=== PATIENT | female | born 1940 | race Caucasian/White ===

== ENCOUNTER 2018-08-25 23:34 | Emergency (ER) | payer OTHER ==
--- NOTE | 2018-08-26 01:42 | ER ---
Nurse's Notes [facility] Name: Vanessa Duran Age: 78 yrs Sex: Female : 1940 Arrival Date: 08/25/2018 Time: 23:38 Bed 15 Private MD: Diagnosis: Acute bronchitis;Fever presenting with conditions classified elsewhere Presentation: 08/25 23:45 Presenting complaint: EMS states: complaining of fever 100.4F, weakness and slurred rr5 speech according to the insurance counsel around 2100H tonight. she is ambulatory, when we came negative for facial asymmetry, negative for arm drift and when no slurring of speech. 23:45 Transition of care: patient was not received from another setting of care. Onset of rr5 symptoms was August 25, 2018. Risk Assessment: Do you want to hurt yourself or someone else? Patient reports no desire to harm self or others. Initial Sepsis Screen: Does the patient meet any 2 criteria? No. Patient's initial sepsis screen is negative. Does the patient have a suspected source of infection? No. Patient's initial sepsis screen is negative. Care prior to arrival: Medication(s) given: Tylenol, 1 grm zofran. 23:45 Method Of Arrival: EMS: [facility] rr5 23:45 Acuity: BEATRIZ 3 rr5 23:45 Note CBG 101mg/dl by EMS. rr5 Historical: - Allergies: 23:50 juice and topical; rr5 23:50 Codeine; rr5 23:50 Ultram; rr5 23:50 Floxin; rr5 23:50 avalox; rr5 23:50 Keflex; rr5 23:50 Cleocin Hcl; rr5 23:50 sulfamethoxazole-trimethoprim; rr5 - Home Meds: 23:50 Synthroid Oral [Active]; Protonix Oral [Active]; Wellbutrin Oral [Active]; Coreg Oral rr5 [Active]; Ativan Oral [Active]; tranzondone [Active]; Hydrochlorothiazide Oral [Active]; - PMHx: 23:50 non-hodgkins lymphoma; Hypertension; rr5 - PSHx: 23:50 nose surgery; Tonsillectomy; Appendectomy; ; biopsy right breast; tubes ties; rr5 Hysterectomy; parotid gland; - Immunization history:: Adult Immunizations not up to date, Flu vaccine is not up to date. - Social history:: Smoking status: Patient/guardian denies using tobacco, Patient/guardian denies using alcohol, street drugs. - Ebola Screening: : Patient negative for fever greater than or equal to 101.5 degrees Fahrenheit, and additional compatible Ebola Virus Disease symptoms Patient denies exposure to infectious person Patient denies travel to an Ebola-affected area in the 21 days before illness onset. Screenin:50 Abuse screen: Denies threats or abuse. Nutritional screening: No deficits noted. jb4 23:50 Tuberculosis screening: No symptoms or risk factors identified. Fall Risk IV access (20 jb4 points). Gait- Normal/Bed Rest/Wheelchair (0 pts) Total [place] Fall Scale indicates No Risk (0-24 pts). Assessment: 23:40 General: Appears in no apparent distress. comfortable, Behavior is calm, cooperative, jb4 appropriate for age. Pain: Denies pain. Neuro: Level of Consciousness is awake, alert, obeys commands, Oriented to person, place, time, situation, Moves all extremities. Full function Weakness generalized. Speech is normal, Facial symmetry appears normal. Cardiovascular: Heart tones S1 S2 present Patient's skin is warm and dry. Respiratory: Airway is patent Respiratory effort is even, unlabored, Respiratory pattern is regular, symmetrical, Breath sounds are clear in right upper lobe, left upper lobe, right middle lobe, left lower lobe, left posterior upper lobe, right posterior upper lobe, left posterior lower lobe, right posterior middle lobe and right posterior lower lobe Breath sounds with crackles in right lower lobe. GI: Reports nausea. : No signs and/or symptoms were reported regarding the genitourinary system. EENT: No signs and/or symptoms were reported regarding the EENT system. Derm: Skin is intact, Skin is pink, warm \T\ dry. Musculoskeletal: Circulation, motion, and sensation intact. 08/26 01:00 Reassessment: Patient appears in no apparent distress at this time. Patient and/or jb4 family updated on plan of care and expected duration. Pain level reassessed. Patient is alert, oriented x 3, equal unlabored respirations, skin warm/dry/pink. 01:58 Reassessment: Patient appears in no apparent distress at this time. Patient and/or jb4 family updated on plan of care and expected duration. Pain level reassessed. Patient is alert, oriented x 3, equal unlabored respirations, skin warm/dry/pink. Pt is on shot time. Vital Signs: 08/25 23:45 BP 144 / 58; Pulse 81; Resp 17; Temp 98.4(TE); Pulse Ox 99% ; Weight 60.78 kg; Height 4 rr5 ft. 11 in. (149.86 cm); Pain 0/10; 08/26 01:00 BP 131 / 54; Pulse 81; Resp 16; Pulse Ox 95% on R/A; jb4 02:00 BP 124 / 56; Pulse 77; Resp 16; Pulse Ox 97% on R/A; jb4 08/25 23:45 Body Mass Index 27.06 (60.78 kg, 149.86 cm) rr5 ED Course: 08/25 23:38 Patient arrived in ED. al2 23:44 Morro Moore, СЕРГЕЙ is Primary Nurse. jb4 23:48 Edelmira Johnson FNP-C [facility]. snw 23:48 Brian Florez MD is Attending Physician. snw 23:50 Arm band placed on. rr5 23:50 Patient has correct armband on for positive identification. Bed in low position. Call jb4 light in reach. Side rails up X 1. Pulse ox on. NIBP on. 23:54 Triage completed. rr5 08/26 00:[address] via stretcher. kw1 00:29 Flu Sent. rr5 00:29 Strep Sent. rr5 00:34 CT completed. Patient tolerated procedure well. Patient moved back from CT. kw1 00:39 CT Head Brain wo Cont In Process Unspecified. EDMS 00:48 Chest Single View XRAY In Process Unspecified. EDMS 01:13 Flu Sent. jb4 01:13 Strep Sent. jb4 02:36 No provider procedures requiring assistance completed. IV discontinued, intact, jb4 bleeding controlled. Administered Medications: 01:58 Drug: Rocephin (cefTRIAXone) 1 grams Route: IM; Site: right gluteus; jb4 02:15 Follow up: Response: No adverse reaction jb4 Outcome: 01:41 Discharge ordered by . snw 02:36 Discharged to home via wheelchair, Wearing Apparel Shaker jb4 02:36 Condition: stable 02:36 Discharge instructions given to patient, insurance counsel, Instructed on discharge instructions, follow up and referral plans. medication usage, Demonstrated understanding of instructions, follow-up care, medications, Prescriptions given X 2. 02:39 Patient left the ED. jb4 Signatures: Dispatcher [employer] EDMS Edelmira Johnson, GIZZARD PULLER-C GIZZARD PULLER-Csnw Morro Moore, RN RN jb4 Dea Samson1 Adia Claros Raymond, RN RN rr5
--- NOTE | 2018-08-26 01:42 | EDPHYS ---
Physician Documentation [facility] Name: Vanessa Duran Age: 78 yrs Sex: Female : 1940 Arrival Date: 08/25/2018 Time: 23:38 Bed 15 Private MD: ED Physician Brian Florez HPI: 08/26 00:50 This 78 yrs old Female presents to ER via EMS with complaints of Fever, snw Weakness. 00:50 The patient reports fever, not measured (subjective). Onset: The symptoms/episode snw began/occurred suddenly, 2 day(s) ago, and became persistent. Modifying factors: there are no obvious modifying factors. Severity of symptoms: At their worst the symptoms were moderate just prior to arrival. It is unknown whether or not the patient has had similar symptoms in the past. The patient has been recently seen by a physician: the patient's primary care provider, Dr. Burnette 5 day(s) ago, for apparently unrelated complaints, patient was seen for a routine check. Historical: - Allergies: 08/25 23:50 juice and topical; rr5 23:50 Codeine; rr5 23:50 Ultram; rr5 23:50 Floxin; rr5 23:50 avalox; rr5 23:50 Keflex; rr5 23:50 Cleocin Hcl; rr5 23:50 sulfamethoxazole-trimethoprim; rr5 - Home Meds: 23:50 Synthroid Oral [Active]; Protonix Oral [Active]; Wellbutrin Oral [Active]; Coreg Oral rr5 [Active]; Ativan Oral [Active]; tranzondone [Active]; Hydrochlorothiazide Oral [Active]; - PMHx: 23:50 non-hodgkins lymphoma; Hypertension; rr5 - PSHx: 23:50 nose surgery; Tonsillectomy; Appendectomy; ; biopsy right breast; tubes ties; rr5 Hysterectomy; parotid gland; - Immunization history:: Adult Immunizations not up to date, Flu vaccine is not up to date. - Social history:: Smoking status: Patient/guardian denies using tobacco, Patient/guardian denies using alcohol, street drugs. - Ebola Screening: : Patient negative for fever greater than or equal to 101.5 degrees Fahrenheit, and additional compatible Ebola Virus Disease symptoms Patient denies exposure to infectious person Patient denies travel to an Ebola-affected area in the 21 days before illness onset. ROS: 08/26 00:49 Eyes: Negative for injury, pain, redness, and discharge. snw Neck: Negative for injury, pain, and swelling, Cardiovascular: Negative for chest pain, palpitations, and edema. Back: Negative for injury and pain, : Negative for injury, bleeding, discharge, and swelling, MS/Extremity: Negative for injury and deformity, Skin: Negative for injury, rash, and discoloration, Neuro: Negative for headache, weakness, numbness, tingling, and seizure. Constitutional: Positive for body aches, fever, malaise, poor PO intake. ENT: Positive for sinus congestion, sore throat. Respiratory: Positive for cough, with no reported sputum. Abdomen/GI: Positive for nausea. Exam: 00:48 Head/Face: Normocephalic, atraumatic. Eyes: Pupils equal round and reactive to light, snw extra-ocular motions intact. Lids and lashes normal. Conjunctiva and sclera are non-icteric and not injected. Cornea within normal limits. Periorbital areas with no swelling, redness, or edema. 00:48 Neck: Trachea midline, no thyromegaly or masses palpated, and no cervical lymphadenopathy. Supple, full range of motion without nuchal rigidity, or vertebral point tenderness. No Meningismus. Chest/axilla: Normal chest wall appearance and motion. Nontender with no deformity. No lesions are appreciated. Cardiovascular: Regular rate and rhythm with a normal S1 and S2. No gallops, murmurs, or rubs. Normal PMI, no JVD. No pulse deficits. Abdomen/GI: Soft, non-tender, with normal bowel sounds. No distension or tympany. No guarding or rebound. No evidence of tenderness throughout. Back: No spinal tenderness. No costovertebral tenderness. Full range of motion. Skin: Warm, dry with normal turgor. Normal color with no rashes, no lesions, and no evidence of cellulitis. MS/ Extremity: Pulses equal, no cyanosis. Neurovascular intact. Full, normal range of motion. Neuro: Awake and alert, GCS 15, oriented to person, place, time, and situation. Cranial nerves II-XII grossly intact. Motor strength 5/5 in all extremities. Sensory grossly intact. Cerebellar exam normal. Normal gait. Psych: Awake, alert, with orientation to person, place and time. Behavior, mood, and affect are within normal limits. 00:48 Constitutional: The patient appears alert, awake, frail, uncomfortable, congested 00:48 ENT: TM's: are normal, Nose: Nasal mucosa: edematous, Mouth: is normal, Posterior pharynx: erythema, that is mild, Voice: is normal. 00:48 Respiratory: the patient does not display signs of respiratory distress, Respirations: normal, Breath sounds: are clear throughout, dry cough. Vital Signs: 08/25 23:45 BP 144 / 58; Pulse 81; Resp 17; Temp 98.4(TE); Pulse Ox 99% ; Weight 60.78 kg; Height 4 rr5 ft. 11 in. (149.86 cm); Pain 0/10; 08/26 01:00 BP 131 / 54; Pulse 81; Resp 16; Pulse Ox 95% on R/A; jb4 02:00 BP 124 / 56; Pulse 77; Resp 16; Pulse Ox 97% on R/A; jb4 08/25 23:45 Body Mass Index 27.06 (60.78 kg, 149.86 cm) rr5 MDM: 00:01 Patient medically screened. snw 01:43 Data reviewed: vital signs, nurses notes. Data interpreted: Pulse oximetry: on room air snw is 95 %. Interpretation: acceptable. Counseling: I had a detailed discussion with the patient and/or guardian regarding: the historical points, exam findings, and any diagnostic results supporting the discharge/admit diagnosis, lab results, radiology results, the need for outpatient follow up, to return to the emergency department if symptoms worsen or persist or if there are any questions or concerns that arise at home. Special discussion: Based on the history and exam findings, there is no indication for further emergent testing or inpatient evaluation. I discussed with the patient/guardian the need to see the primary care provider for further evaluation of the symptoms. 08/26 00:03 Order name: Urine Culture snw 08/26 00:03 Order name: Urine Microscopic Only; Complete Time: 01:54 snw 08/26 00:09 Order name: Strep; Complete Time: :32 snw 08/26 00:09 Order name: Flu; Complete Time: :32 snw 08/26 01:21 Order name: Urine Dipstick--Ancillary (enter results); Complete Time: 01:54 ar5 08/26 01:29 Order name: Throat Culture EDMS 08/26 00:03 Order name: Cath; Complete Time: 01:13 snw 08/26 00:03 Order name: Urine Dipstick-Ancillary (obtain specimen); Complete Time: 01:13 snw 08/26 00:03 Order name: CT Head Brain wo Cont snw 08/26 00:09 Order name: Chest Single View XRAY snw Administered Medications: 01:58 Drug: Rocephin (cefTRIAXone) 1 grams Route: IM; Site: right gluteus; jb4 02:15 Follow up: Response: No adverse reaction jb4 Disposition: 08/26/18 01:41 Discharged to Home. Impression: Acute bronchitis, Fever presenting with conditions classified elsewhere. - Condition is Stable. - Discharge Instructions: Acute Bronchitis, Adult, Fever, Adult, Rehydration, Elderly. - Prescriptions for cefdinir 300 mg Oral capsule - take 1 capsule by ORAL route every 12 hours for 10 days; 20 capsule. Flonase Allergy Relief 50 mcg/actuation Nasal spray,suspension - inhale 2 spray by INTRANASAL route once daily; 1 Cartridge. - Medication Reconciliation Form, Thank You Letter, Antibiotic Education, Prescription Opioid Use form. - Follow up: Private Physician; When: 2 - 3 days; Reason: Recheck today's complaints, Continuance of care, Re-evaluation by your physician. Follow up: Emergency Department; When: As needed; Reason: Trouble breathing, Worsening of condition. Addendum: 08/29/2018 12:42 Co-signature as Attending Physician, Brian Florez MD. g s Signatures: Dispatcher [employer] EDIN Edelmira Johnson, ELECTRONIC PARTS DESIGNER-C ELECTRONIC PARTS DESIGNER-Csnw Morro Moore, RN RN jb4 Brian Floerz MD MD gs Roque, Raymond RN RN rr5 Corrections: (The following items were deleted from the chart) 08/26 02:39 01:41 08/26/2018 01:41 Discharged to Home. Impression: Acute bronchitis; Fever jb4 presenting with conditions classified elsewhere. Condition is Stable. Forms are Medication Reconciliation Form, Thank You Letter, Antibiotic Education, Prescription Opioid Use. Follow up: Private Physician; When: 2 - 3 days; Reason: Recheck today's complaints, Continuance of care, Re-evaluation by your physician. Follow up: Emergency Department; When: As needed; Reason: Trouble breathing, Worsening of condition. snw
[2018-08-26 01:50] LABS: Urine Mucus 2+ /HPF (NONE SEEN); Urine RBC <5 /HPF (NONE SEEN)
[2018-08-26 01:51] LABS: Urine Blood TRACE (NEG); Urine Glucose NEGATIVE (NEG); Urine Protein 1+ (NEG); Urine Specific Gravity 1.025 (1.005-1.030); Urine pH 5.5 (5.0-7.0)
[2018-08-26 01:51] LABS: Urine Bacteria <20 /HPF (<20); Urine Culture Reflex Order REFLEXED
[2018-08-26] MEDS ORDERED: WATER FOR INJ,STERILE 10 ML ONE (01:59)
[2018-08-26] MEDS ORDERED: CEFTRIAXONE 1000 MG/VIAL ONE (01:59)
--- NOTE | 2018-08-26 10:20 | RAD REPORT ---
EXAM DESCRIPTION: CT - Head Brain Wo Cont - 08/26/2018 6:02 am CLINICAL HISTORY: Alteration of awareness/confusion COMPARISON: None TECHNIQUE: Computed axial tomography of the head was obtained. IV contrast was not requested.Kazi cruz report was generated by [facility] and reviewed prior to dictation All CT scans are performed using dose optimization technique as appropriate and may include automated exposure control or mA/KV adjustment according to patient size. FINDINGS: An intracranial bleed is not seen . The ventricles are normal in caliber. A 9 millimeter calcified extra-axial structure within the right frontal region probably represents a meningioma. There is no surrounding edema No extra-axial fluid collection is noted. Mild low-density areas within periventricular, deep and sub cortical white matter likely represent ischemic changes secondary to small vessel disease. Fluid within the sinuses/ mastoids is not seen. IMPRESSION: No acute intracranial abnormality is seen. If patient's symptoms persist MRI of the bra in would be recommended.
--- NOTE | 2018-08-26 10:56 | RAD REPORT ---
EXAM DESCRIPTION: aFllon Single View08/26/2018 12:47 am CLINICAL HISTORY: cough COMPARISON: 2009 FINDINGS: The lungs appear clear of acute infiltrate. The heart is normal size IMPRESSION: No acute abnormalities displayed
== END 2018-08-26 02:39 | disposition home or self-care (01) ==
LOC: ER 23:34
DX: J20.9 Acute bronchitis, unspecified (principal); I10 Essential (primary) hypertension; Z85.72 Personal history of non-Hodgkin lymphomas; Z88.1 Allergy status to other antibiotic agents; Z88.2 Allergy status to sulfonamides; Z88.5 Allergy status to narcotic agent; Z88.6 Allergy status to analgesic agent; Z88.8 Allergy status to other drugs, medicaments and biological substances
CPT/HCPCS: 70450; 71045; 81003; 81015; 87070; 87081; 87086; 87088; 87804; 96372; 99284

== ENCOUNTER 2024-04-30 09:26 | Observation (INO) | payer OTHER ==
--- NOTE | 2024-04-30 10:18 | RAD REPORT ---
EXAM: CT brain without contrast HISTORY: TRAUMA COMPARISON: 08/26/2018 TECHNIQUE: Multiple contiguous axial images were obtained and a CT of the brain without contrast. Sag ittal and coronal reformats were performed. One or more of the following dose reduction techniques were used: Automated exposure control, adjust ment of the mA and/or kV according to patient size, and/or iterative reconstruction. FINDINGS: No evidence of hydrocephalus, intracranial hemorrhage, or extra-axial fluid collection. Moderate brain atrophy with moderate periventricular and deep white matter chronic microvascular isc hemic changes present. No evidence of midline shift or areas of brain edema. The calvarium is intact. The visualized paranasal sinuses and mastoid air cells are essentially clear . IMPRESSION: No evidence of acute intracranial abnormality.
--- NOTE | 2024-04-30 10:33 | RAD REPORT ---
EXAMINATION: ONE VIEW CHEST XR CLINICAL INDICATION: SOB TECHNIQUE: Frontal chest projection is submitted. Examination is limited by patient positioning and t echnique. COMPARISON: 08/26/2018, 11/20/2009 FINDINGS: Fullness is noted in the medial right upper lobe which could be due to tortuous vasculature or a mass . CT imaging of the chest would be helpful for further evaluation. Lungs otherwise clear. The heart is upper limit of normal in size. No displaced fractures identified. Mild thoracic dextroscoliosi s.
--- NOTE | 2024-04-30 10:34 | RAD REPORT ---
EXAMINATION: XR LEFT ANKLE CLINICAL INDICATION: Female, 83 years old. DEFORMITYBRHS MAIN DEFORMITY Bed Name: DIS1 TECHNIQUE: 3 view radiograph of the left ankle were obtained. COMPARISON: No prior exam. FINDINGS: Diffuse osteopenia seen. Oblique fracture of the distal shaft of the fibula. Widening of th e medial clear space is seen suggesting disruption of the syndesmotic ligament. Moderate soft tissue swelling.
[2024-04-30 10:57] LABS: Absolute Basophils 0.1 K/uL (0-0.5); Absolute Eosinophils 0.1 K/uL (0-0.5); Absolute Lymphocytes (CBC) 1.5 K/uL (0.7-4.9); Absolute Monocytes 0.7 K/uL (0.1-1.3); Absolute Neutrophil 4.3 K/uL (1.8-8.0); Basophils % 0.8 % (0-1.3); Eosinophils % 0.8 % (0-4.4); Hematocrit 37.9 % (36.0-45.0); Hemoglobin 12.6 g/dL (12.0-15.0); Lymphocytes % 22.8 % (15.3-44.8); MCH 31.2 pg (27.0-35.0); MCHC 33.1 g/dL (32.0-36.0); MPV 7.7 fL (7.6-11.3); Monocytes % 10.8 % (3.3-12.3); Neutrophils % 64.8 % (41.7-73.7); Platelets 188 thou/uL (152-406); RBC Red Blood Cell Count 4.04 M/uL (3.86-4.86); Red Cell Distribution Width 14.3 % (12.1-15.2)
[2024-04-30 11:04] LABS: PT Prothrombin Time 11.4 SECONDS (9.4-12.5); PTT, Activated Partial Thromb 32.3 SECONDS (24.3-36.9); Protime INR 1.02
[2024-04-30 11:13] LABS: AST/SGOT 14 U/L (15-37); Albumin 3.4 g/dL (3.4-5.0); Albumin/Globulin Ratio 1.1 (1.1-1.8); Alkaline Phosphatase 71 U/L (45-117); Anion Gap 8.1 mEq/L (5.0-15.0); BUN Blood Urea Nitrogen 20 mg/dL (7-18); Bicarbonate 28 mEq/L (21-32); Bilirubin Total 0.6 mg/dL (0.2-1.0); Creatine Phosphokinase 52 U/L (26-192); Globulin 3.2 g/dL (2.3-3.5); Glomerular Filtration Rate 47 ml/min (=/>90); Glucose Level 121 mg/dL (74-106); NT PRO-BNP 1338 pg/mL (<450); Potassium 4.1 mEq/L (3.5-5.1); Protein, Total 6.6 g/dL (6.4-8.2); Sodium Level 138 mEq/L (136-145); Troponin High Sensitivity 15.3 pg/mL (<58.9)
--- NOTE | 2024-04-30 11:20 | RAD REPORT ---
EXAMINATION: CT CHEST WITHOUT CONTRAST CLINICAL INDICATION: DYSPNEA TECHNIQUE: Routine CT scan of the chest without intravenous contrast. One or more of the following do se reduction techniques were used: Automated exposure control, adjustment of the mA and/or kV according to patient size, and/or iterative reconstruction. Unless otherwise specified, incidental fi ndings do not require dedicated imaging follow-up. COMPARISON: Recent chest radiograph same date FINDINGS: LOWER NECK: Recent right chest radiograph findings along the right paratracheal stripe is likely rela panda to a very tortuous brachiocephalic artery. LUNGS: Mild COPD is noted. No pulmonary nodule, mass or infiltrate seen. PLEURA: No pleural effusion. No pneumothorax. . MEDIASTINUM AND LYMPH NODES: No mediastinal mass or fluid collection. Normal size mediastinal, hilar, and axillary lymph nodes. OSSEOUS STRUCTURES AND CHEST WALL: Mild thoracic dextroscoliosis. UPPER ABDOMEN: Gallstone is present in the gallbladder. IMPRESSION: No acute or significant abnormalities. Examination is limited by lack of contrast. Recent chest radiograph finding in the right paratracheal stripe is likely caused by a tortuous vesse l. Cholelithiasis.
[2024-04-30 11:24] LABS: ALT/SGPT < 14 U/L (13-56)
--- NOTE | 2024-04-30 12:14 | ER ---
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 denies LOC. reports left ankle pain. Coronavirus screen: At this time, the client does not indicate any symptoms associated with coronavirus-19. Ebola Screen: No symptoms or risks identified at this time. Initial Sepsis Screen: Does the patient meet any 2 criteria? No. Patient's initial sepsis screen is negative. Does the patient have a suspected source of infection? No. Patient's initial sepsis screen is negative. Risk Assessment: Do you want to hurt yourself or someone else? Patient reports no desire to harm self or others. Onset of symptoms was April 30, 2024. 11:03 Method Of Arrival: EMS: [facility] kc6 11:03 Acuity: BEATRIZ 3 kc6 Historical: - Allergies: 11:05 AVALOX; kc6 11:05 juice and topical; kc6 11:05 Cleocin Hcl; kc6 11:05 Codeine; kc6 11:05 Floxin; kc6 11:05 Keflex; kc6 11:05 sulfamethoxazole-trimethoprim; kc6 11:05 Ultram; kc6 - PMHx: 11:05 Hypertension; Non-Hodgkins Lymphoma; kc6 - Immunization history:: Adult Immunizations up to date. - Infectious Disease History:: Denies. - Social history:: Smoking status: Patient denies any tobacco usage or history of. Screenin:50 [facility] ED Fall Risk Assessment (Adult) History of falling in the last 3 months, kc6 including since admission Yes- single mechanical fall (1 pt) Confusion or Disorientation No (0 pts) Intoxicated or Sedated No (0 pts) Impaired Gait Yes (1 pt) Mobility Assist Device Used Yes (1 pt) Altered Elimination No (0 pt) Score/Fall Risk Level 3 or more points = High Risk Oriented to surroundings. Abuse screen: Denies threats or abuse. Denies injuries from another. Nutritional screening: No deficits noted. Tuberculosis screening: No symptoms or risk factors identified. Assessment: 11:05 General: Appears in no apparent distress. comfortable, well groomed, well developed, kc6 Behavior is calm, cooperative, appropriate for age. Pain: Complains of pain in left foot. Neuro: Level of Consciousness is awake, alert, obeys commands, Oriented to person, place, time, situation, Appropriate for age. Cardiovascular: Capillary refill < 3 seconds. Respiratory: Airway is patent Trachea midline Respiratory effort is even, unlabored, Respiratory pattern is regular, symmetrical. GI: No signs and/or symptoms were reported involving the gastrointestinal system. : No signs and/or symptoms were reported regarding the genitourinary system. EENT: No signs and/or symptoms were reported regarding the EENT system. Derm: No signs and/or symptoms reported regarding the dermatologic system. Skin is intact, is healthy with good turgor, Skin is pink, warm \\T\\ dry. Musculoskeletal: Bony deformity noted of left foot Swelling present in left foot. 12:22 Reassessment: Patient appears in no apparent distress at this time. No changes from kc6 previously documented assessment. Patient and/or family updated on plan of care and expected duration. Pain level reassessed. Patient is alert, oriented x 3, equal unlabored respirations, skin warm/dry/pink. 13:51 Reassessment: Patient appears in no apparent distress at this time. No changes from kc6 previously documented assessment. Patient and/or family updated on plan of care and expected duration. Pain level reassessed. Patient is alert, oriented x 3, equal unlabored respirations, skin warm/dry/pink. Vital Signs: 11:03 BP 153 / 80; Pulse 65; Resp 16 S; Temp 98.7(O); Pulse Ox 99% on R/A; kc6 12:22 BP 204 / 53; Pulse 60; Resp 16 S; Pulse Ox 100% on R/A; kc6 13:51 BP 166 / 48; kc6 ED Course: 09:37 Patient arrived in ED. iw 09:41 Moriah Reyna MD is Attending Physician. iw 10:08 CT Head Brain wo Cont In Process Unspecified. EDMS 10:13 Laurie Simmons, СЕРГЕЙ is Primary Nurse. kc6 10:23 Chest Single View XRAY In Process Unspecified. EDMS 10:24 Ankle Left 3 View In Process Unspecified. EDMS 10:50 Inserted saline lock: 22 gauge in right antecubital area, using aseptic technique. kc6 Blood collected. Flushed with 10 mL NS. Patient maintains SpO2 saturation greater than 95% on room air. 10:50 EKG done, by ED staff, reviewed by Moriah Reyna MD. kc6 10:50 Patient has correct armband on for positive identification. Bed in low position. Call kc6 light in reach. Side rails up X2. Adult w/ patient. Pulse ox on. NIBP on. Door closed. Noise minimized. Lights dimmed. Warm blanket given. Pillow given. 10:51 Arm band placed on. kc6 11:02 CT Chest Wo Con In Process Unspecified. EDMS 11:05 Triage completed. kc6 11:21 Orthoglass splint: stirrup splint applied on left leg. mb9 12:13 Fish Batres MD is Hospitalizing Provider. gb1 12:22 Straight cath inserted, using sterile technique, 16 Fr. Specimen obtained. Returned kc6 clear yellow urine. Patient tolerated well. 12:42 Pelvis XRAY In Process Unspecified. EDMS 12:44 1232 CM received message from provider, SARAI Thao that patient wished to meet with CM lloyd to discuss options for HH, PT. 1244 CM met with Ms. Duran, her son Thee and caregiver Altagracia at the bedside in the ED exam room. Patient identified by name and . Demographic sheet confirmed. Patient lives alone in her own single story home and has a private pay caregiver through [employer]. who reports Monday through Monday. Thee, patient's son at the bedside, reports that they are planning on increasing services form [employer]. to 24 hour care. Patient reports prior to admission and prior to the fall, she ambulated with a walker and sometimes used a wheelchair if going out or traveling long distances. Other DME in the home includes a shower chair, raised bedside commode, and a handicapped equipped bathroom with diesel retrofit designer bars. No HH or home oxygen at this time. MPOA is in place. Thee states the plan is to return home, continue with [employer] caregiver and hopes to establish PT and OT through [employer] company stating "Anything we can do to get her stronger." CM provided HH choice list and choice letter. CM team will continue to follow and coordinate care during this hospital stay. 1315 Cm requested by Thee to return to exam room, HH choice is [facility]. 1316 CM informed SARAI Thao, awaiting orders. 13:51 No provider procedures requiring assistance completed. Patient admitted, IV remains in kc6 place. 15:15 1623 CM received update from PT Russ and he stated he would enter in his assessment ane notes as well as discuss with . 1908 CM reached out to request appropriate HH order, awaiting response. 1515 PT Russ is at bedside evaluating . 1542 CM reached out to provider via telephone, to request HH order. Administered Medications: No medications were administered Medication: 13:52 VIS not applicable for this client. kc6 Outcome: 12:13 Decision to Hospitalize by Provider. gb1 13:51 Admitted to ER Hold. Please see [facility] for further documentation. [facility] 13:51 Condition: stable 13:51 Instructed on the need for admit, 18:28 Patient left the ED. [facility] Signatures: Dispatcher [employer] EDMS Shira Baron RN RN iw Laurie Simmons RN RN kc6 Tayla Aleman RN RN mb9 Moriah Reyna MD MD gb1 Abi Mendenhall RN RN ane Corrections: (The following items were deleted from the chart) 11:21 11:21 Orthoglass splint: stirrup splint applied on left leg. 6 mb9
--- NOTE | 2024-04-30 12:15 | EDPHYS ---
Physician Documentation [facility] Name: Vanessa Duran Age: 83 yrs Sex: Female : 1940 Arrival Date: 04/30/2024 Time: 09:26 Bed 14 Private MD: ED Physician Moriah Reyna HPI: 04/30 11:52 This 83 yrs old Female presents to ER via EMS with complaints of Fall Injury, gb1 Ankle Injury. 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 She has pain and swelling of the left ankle. She came by EMS which placed an ice pack on the left swollen ankle. She states that she is unsure whether she had a mechanical fall and tripped or got dizzy and fell. She denies hitting her head. She remembers the event and remembers falling. She has a history of hypertension, non-Hodgkin's lymphoma. She has no family close by other than her son in [place] who she rarely sees. She denies any pain anywhere else.. Historical: - Allergies: 11:05 AVALOX; kc6 11:05 juice and topical; kc6 11:05 Cleocin Hcl; kc6 11:05 Codeine; kc6 11:05 Floxin; kc6 11:05 Keflex; kc6 11:05 sulfamethoxazole-trimethoprim; kc6 11:05 Ultram; kc6 - PMHx: 11:05 Hypertension; Non-Hodgkins Lymphoma; kc6 - Immunization history:: Adult Immunizations up to date. - Infectious Disease History:: Denies. - Social history:: Smoking status: Patient denies any tobacco usage or history of. Exam: 11:52 Constitutional: This is a well developed, well nourished patient who is awake, alert, gb1 and in no acute distress. Head/Face: Normocephalic, atraumatic. Eyes: Pupils equal round and reactive to light, extra-ocular motions intact. Lids and lashes normal. Conjunctiva and sclera are non-icteric and not injected. Cornea within normal limits. Periorbital areas with no swelling, redness, or edema. ENT: Nares patent. No nasal discharge, no septal abnormalities noted. Tympanic membranes are normal and external auditory canals are clear. Oropharynx with no redness, swelling, or masses, exudates, or evidence of obstruction, uvula midline. Mucous membranes moist. Neck: Trachea midline, no thyromegaly or masses palpated, and no cervical lymphadenopathy. Supple, full range of motion without nuchal rigidity, or vertebral point tenderness. No Meningismus. Chest/axilla: Normal chest wall appearance and motion. Nontender with no deformity. No lesions are appreciated. Cardiovascular: Regular rate and rhythm with a normal S1 and S2. No gallops, murmurs, or rubs. Normal PMI, no JVD. No pulse deficits. Respiratory: Lungs have equal breath sounds bilaterally, clear to auscultation and percussion. No rales, rhonchi or wheezes noted. No increased work of breathing, no retractions or nasal flaring. Abdomen/GI: Soft, non-tender, with normal bowel sounds. No distension or tympany. No guarding or rebound. No evidence of tenderness throughout. Back: No spinal tenderness. No costovertebral tenderness. Full range of motion. Skin: Warm, dry with normal turgor. Normal color with no rashes, no lesions, and no evidence of cellulitis. MS/ Extremity: Pulses equal, no cyanosis. Neurovascular intact. Patient has an obvious deformity and swelling of the left ankle. She is unable to move it secondary to pain. Vital Signs: 11:03 BP 153 / 80; Pulse 65; Resp 16 S; Temp 98.7(O); Pulse Ox 99% on R/A; kc6 12:22 BP 204 / 53; Pulse 60; Resp 16 S; Pulse Ox 100% on R/A; kc6 13:51 BP 166 / 48; kc6 Procedures: 11:52 Splinting: Splint applied to left foot using Orthoglass splint, applied by nurse. gb1 Examined by me, post splint application: neurovascular intact, 2+ distal pulses palpable, brisk capillary refill noted, Patient tolerated well. MDM: 09:54 Patient medically screened. gb1 11:52 Data reviewed: vital signs, nurses notes, lab test result(s), CBC, electrolytes, gb1 radiologic studies, plain films. 11:52 ED course: 83-year-old female status post ground-level fall at home with a new left gb1 oblique distal fibular fracture. The patient also had an abnormality on the chest x-ray which is concerning for tortuous vessel versus mass. CT of the chest revealed that it was a tortuous vessel. Patient's labs otherwise at this time appear unremarkable but it is concerning the etiology of the fall. I discussed the case with Dr. Roman having on-call orthopedic surgeon who agreed with the posterior Ortho-Glass splint. He did state to me that the injury was nonoperable at this time. Patient is awake and alert and will need inpatient social work planning for home care and disposition.. 11:52 ED course: Patient is left ankle has a normal DP/PT pulses and she is also gb1 neurovascularly intact. The toes on the left foot have good cap refill.. 10 09:58 Order name: CBC with Diff; Complete Time: 11:44 gb1 04/30 09:58 Order name: CMP; Complete Time: 11:44 gb1 04/30 09:58 Order name: Lactate w/ 2H reflex if indic.; Complete Time: 11:44 gb1 04/30 09:58 Order name: Protime (+inr); Complete Time: 11:44 gb1 04/30 09:58 Order name: Ptt, Activated; Complete Time: 11:44 gb1 04/30 09:58 Order name: Urinalysis w/ reflexes; Complete Time: 12:55 gb1 04/30 09:58 Order name: CK; Complete Time: 11:44 gb1 04/30 09:58 Order name: NT PRO-BNP; Complete Time: 11:44 gb1 04/30 09:58 Order name: Troponin HS; Complete Time: 11:44 gb1 04/30 09:58 Order name: Chest Single View XRAY; Complete Time: 10:37 gb1 04/30 09:58 Order name: CT Head Brain wo Cont; Complete Time: 10:37 gb1 04/30 10:24 Order name: Ankle Left 3 View; Complete Time: 10:37 EDMS 04/30 10:42 Order name: CT Chest Wo Con; Complete Time: 11:44 gb1 04/30 11:12 Order name: Pelvis XRAY; Complete Time: 12:55 gb1 04/30 09:58 Order name: EKG; Complete Time: 09:58 gb1 04/30 12:38 Order name: CONS Physician Consult EDMS 04/30 09:58 Order name: Accucheck; Complete Time: 10:49 gb1 04/30 09:58 Order name: Cardiac monitoring; Complete Time: 10:49 gb1 04/30 09:58 Order name: EKG - Nurse/Tech; Complete Time: 10:49 gb1 04/30 09:58 Order name: IV Saline Lock - Large Bore; Complete Time: 10:49 gb1 04/30 09:58 Order name: Labs collected and sent; Complete Time: 10:49 gb1 04/30 09:58 Order name: O2 Per Protocol; Complete Time: 10:49 gb1 04/30 09:58 Order name: O2 Sat Monitoring; Complete Time: 10:49 gb1 04/30 09:58 Order name: Vital Signs; Complete Time: 10:50 gb1 04/30 09:58 Order name: Cardiac monitoring; Complete Time: 10:49 gb1 04/30 09:58 Order name: EKG - Nurse/Tech; Complete Time: 10:49 gb1 04/30 09:58 Order name: IV Saline Lock; Complete Time: 10:49 gb1 04/30 09:58 Order name: Labs collected and sent; Complete Time: 10:49 gb1 04/30 09:58 Order name: O2 Per Protocol; Complete Time: 10:49 gb1 04/30 09:58 Order name: O2 Sat Monitoring; Complete Time: 10:49 gb1 04/30 10:43 Order name: Splint - Ankle: Orthoglass: Stirrup; Complete Time: 11:21 gb1 04/30 11:57 Order name: Straight Cath - Urine; Complete Time: 12:22 gb1 Administered Medications: No medications were administered Disposition Summary: 04/30/24 12:13 Hospitalization Ordered Notes: Hospitalization Status: Inpatient Admission gb1 Provider: Fish Batres1 Condition: Stable gb1 Problem: new gb1 Symptoms: are unchanged gb1 Bed/Room Type: Standard gb1 Location: Telemetry/MedSurg (Inpatient)(04/30/24 17:29) kb3 Room Assignment: 216(04/30/24 17:29) kb3 Diagnosis - Nondisplaced fracture of lateral malleolus of left fibula gb1 - Fall on same level, unspecified gb1 Forms: - Medication Reconciliation Form gb1 - SBAR form gb1 - Leadership Thank You Letter gb1 Signatures: Dispatcher [employer] EDMS Lulu Yoon bd Laurie Simmons, RN RN kc6 Niya Blandon, RN RN kb3 Moriah Reyna MD MD gb1 Corrections: (The following items were deleted from the chart) 09:59 09:58 CBC+H.LAB.BRZ ordered. EDMS EDMS 09:59 09:58 COMPREHENSIVE METABOLIC PANEL+C.LAB.BRZ ordered. EDMS EDMS 09:59 09:58 LACTATE+C.LAB.BRZ ordered. EDMS EDMS 09:59 09:58 PROTIME (+INR)+COAG.LAB.BRZ ordered. EDMS EDMS 09:59 09:58 PTT, ACTIVATED+COAG.LAB.BRZ ordered. EDMS EDMS 09:59 09:58 Urinalysis+U.LAB.BRZ ordered. EDMS EDMS 09:59 09:58 CREATINE PHOSPHOKINASE+C.LAB.BRZ ordered. EDMS EDMS 09:59 09:58 PROBNP+C.LAB.BRZ ordered. EDMS EDMS 09:59 09:58 Troponin High Sensitivity+C.LAB.BRZ ordered. EDMS EDMS 09:59 09:59 Head Brain Wo Cont+CT.RAD.BRZ ordered. EDMS EDMS 09:59 09:59 Ankle Left 2 View+RAD.RAD.BRZ ordered. EDMS EDMS 10:42 10:42 Thorax Wo Con+CT.RAD.BRZ ordered. EDMS EDMS 13:06 12:13 Telemetry/MedSurg (observation) gb1 bd 13:06 12:13 gb1 bd 17:29 13:06 [facility] ER HOLD bd kb3 17:29 13:06 ERHOLD- bd kb3
[2024-04-30 12:30] LABS: Specific Gravity 1.026 (1.005-1.030); Sqamous Epithelial <5 /HPF (None Seen); Urine Bacteria None Seen /HPF (<20); Urine Bilirubin NEGATIVE (Negative); Urine Blood Negative (Negative); Urine Clarity Clear (Clear); Urine Color Yellow (Yellow); Urine Culture Reflex Order NOT NEEDED; Urine Glucose NEGATIVE (Negative); Urine Ketones NEGATIVE (Negative); Urine Microscopic Reflex YN ORDER UMIC; Urine Mucus Slight /HPF (None Seen); Urine Nitrite NEGATIVE (Negative); Urine Protein TRACE (Negative); Urine RBC <5 /HPF (None Seen); Urine Urobilinogen Normal (Normal); Urine WBC <5 /HPF (<5); Urine pH 5.5 (5.0-7.0)
--- NOTE | 2024-04-30 12:41 | P.HP ---
Certification for Inpatient Patient admitted to: Observation Patient will require the following post-hospital care: Home Health Services Practitioner: I am a practitioner with admitting privileges, knowledge of patient current condition, hospital course, and medical plan of care. Services: Services provided to patient in accordance with Admission requirements found in Title 42 Section 412.3 of the Code of Federal Regulations <Keesha Lovell - Last Filed: 04/30/24 17:04> Patient History Date of Service: 04/30/24 <Fish Batres - Last Filed: 04/30/24 16:00> Date of Service: 04/30/24 Reason for admission: Fall, foot fracture fall, nondisplaced fibula fracture History of Present Illness: 83 yrs old Female with past medical hypertension, non-Hodgkin's lymphoma. presents to ER via EMS with complaints of Fall Injury, She reports falling out of bed attempting to transfer to [facility]. She reports Ankle pain, Injury. 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 She has pain and swelling of the left ankle. Suspected mechanical fall. She reported dizzimess, she does not remember hitting her head. HPI limited due to forgetfulness. she re remembers being on the floor. Caregiver and son is at bedside in emergency room she has no family close by other than her son in [place]. She denies any pain anywhere except left lower extremity no chest pain, shortness of breath. Plan to admit to obs for nondisplaced Fibula fracture, Fall, hyponatremia. Dr Roman orthopedic surg to consulted - Past Medical/Surgical History -: Hypertension -: Fall -: Nondisplaced fibula fracture -: non-Hodgkin's lymphoma - Social History Smoking Status: Never smoker Alcohol use: No Place of Residence: Home <Keesha Lovell - Last Filed: 04/30/24 17:04> Allergies cephalexin [From Keflex] Allergy (Verified 04/30/24 15:26) Rash clindamycin [From Cleocin] Allergy (Verified 04/30/24 15:26) Rash codeine Allergy (Verified 04/30/24 15:26) Rash ofloxacin [From Floxin] Allergy (Verified 04/30/24 15:26) Rash sulfamethoxazole [From Bactrim] Allergy (Verified 04/30/24 15:26) Rash tramadol [From Ultram] Allergy (Verified 04/30/24 15:26) Rash trimethoprim [From Bactrim] Allergy (Verified 04/30/24 15:26) Rash Review of Systems 10-point ROS is otherwise unremarkable <Btares,Juligraciela New - Last Filed: 04/30/24 16:00> Unremarkable (negative unless listed HPI) <Keesha Lovell - Last Filed: 04/30/24 17:04> Physical Examination - Physical Exam General: Alert, In no apparent distress, Oriented x2 HEENT: Atraumatic, PERRLA, Mucous membr. moist/pink, EOMI, Sclerae nonicteric Neck: Supple, 2+ carotid pulse no bruit, No LAD, Without JVD or thyroid abnormality Respiratory: Clear to auscultation bilaterally, Normal air movement Cardiovascular: Regular rate/rhythm, Normal S1 S2 Gastrointestinal: Normal bowel sounds, Soft and benign, Non-distended, No tenderness Musculoskeletal: Tenderness, Other (Decreased range of motion of the left leg; splint placed for immobilization) Integumentary: No rashes Neurological: Normal speech, Normal tone, Cranial nerves 3-12 intact, Normal affect, Abnormal gait, Abnormal strength Lymphatics: No axilla or inguinal lymphadenopathy - Studies Laboratory Data (last 24 hrs) 04/30/24 04/30/24 04/30/24 10:43 10:43 10:43 WBC 6.60 Hgb 12.6 Hct 37.9 Plt Count 188 PT 11.4 INR 1.02 APTT 32.3 Sodium 138 Potassium 4.1 BUN 20 H Creatinine 1.15 H Glucose 121 H Total Bilirubin 0.6 AST 14 L ALT < 14 Alkaline Phosphatase 71 <Juli Batresgraciela Virgen - Last Filed: 04/30/24 16:00> - Physical Exam General: Alert, Oriented x2, Other (Fine motor tremors, anxiety with transfers.) HEENT: Atraumatic, Normocephalic Neck: Supple, 2+ carotid pulse no bruit Respiratory: Clear to auscultation bilaterally, Normal air movement Cardiovascular: Normal pulses, Regular rate/rhythm Capillary refill: Other (LLE WD, +2 pulses, soft cast LLE) Gastrointestinal: Normal bowel sounds, Soft and benign Musculoskeletal: Other Integumentary: Other (swelling of the left ankle, ) Neurological: Normal speech, Normal strength at 5/5 x4 extr, Other (generalized weakess) - Studies Laboratory Data (last 24 hrs) 04/30/24 04/30/24 04/30/24 10:43 10:43 10:43 WBC 6.60 Hgb 12.6 Hct 37.9 Plt Count 188 PT 11.4 INR 1.02 APTT 32.3 Sodium 138 Potassium 4.1 BUN 20 H Creatinine 1.15 H Glucose 121 H Total Bilirubin 0.6 AST 14 L ALT < 14 Alkaline Phosphatase 71 <Keesha Lovell - Last Filed: 04/30/24 17:04> Assessment and Plan - Problems (Diagnosis) (1) Closed left fibular fracture Current Visit: Yes Status: Acute (2) Near syncope Current Visit: Yes Status: Acute (3) REESE (acute kidney injury) Current Visit: Yes Status: Acute - Plan Plan: 1. Continue with gentle hydration. 2. Immobilization of the left ankle 3. Physical therapy evaluation; patient has 12-hour caregiver. However, patient is able to normally transfer herself at night to the toilet. Occasionally she may have to take a few steps. Unfortunately, I do not believe she will be able to do this safely without assistance or 20/02 care. Will see if we can get family to assist with patient prior to discharging. 4. Pain control; patient have a lot of pain with putting pressure on that left ankle. At her age given her narcotics may be detrimental to her mental status. May need to observe her to see how she tolerates it. 5. Monitor CPK level 6. GI DVT prophylaxis Discharge Plan: Home Plan to discharge in: Greater than 2 days - Code Status/Comfort Care Code Status Assessed: Yes Code Status: Full Code Critical Care: No Time Spent Managing Pts Care (In Minutes): 45 <Fish Batres - Last Filed: 04/30/24 16:00> - Problems (Diagnosis) (1) Fall from bed, initial encounter Current Visit: Yes Status: Acute (2) REESE (acute kidney injury) Current Visit: Yes Status: Acute (3) Closed left fibular fracture Current Visit: Yes Status: Acute (4) Near syncope Current Visit: Yes Status: Acute - Advance Directives Does patient have a Living Will: No Does patient have a Durable POA for Healthcare: No <Keesha Lovell - Last Filed: 04/30/24 17:04>
--- NOTE | 2024-04-30 12:52 | RAD REPORT ---
EXAMINATION: XR PELVIS CLINICAL INDICATION: Female, 83 years old. [facility] MAIN TRAUMA Bed Name: 14 TECHNIQUE: AP Pelvis radiograph was obtained. COMPARISON: No prior exam. FINDINGS: No evidence of fracture or dislocation. Normal alignment. No evidence of AVN. Wire sutures seen overlying the left anterior superior iliac spine. Scattered mild degenerative changes throughout the pelvic joints. IMPRESSION: No acute or significant abnormalities. Findings as above.
[2024-04-30 15:27] VITALS: BMI 26.2
[2024-04-30] MEDS ORDERED: ONDANSETRON 4 MG/2 ML VIAL IV PRN (15:27)
[2024-04-30] MEDS: NA CHLORIDE 0.9% 1,000 ML IV SCH (15:27)
--- NOTE | 2024-04-30 16:43 | P.PN ---
Date of Service: 04/30/24 Physical therapy came down to work with the patient. Patient left leg was splinted. Patient normally is able to walk a little bit and get to the bedside commode. They were able to get her out of the bed the patient had a lot of pain and was at a high risk of falling per family. They are concerned with her going home today as they want to make sure they have 24/7 caretaking ability. Right now they have a material carrier in place from 8 AM to 8 PM. The son states that he may be able to watch her at night after the material carrier leaves but he was going to work at his schedule. Currently, we will go ahead and continue to have patient work with therapy in the morning and if they are able to transfer fairly well then I anticipate her going home first thing in the morning.
[2024-04-30] MEDS ORDERED: ACETAMINOPHEN 500 MG TAB ONE (17:21)
[2024-04-30] MEDS ORDERED: NA CHLORIDE 0.9% 1,000 ML ONE (17:21)
[2024-04-30] MEDS: ACETAMINOPHEN 500 MG TAB PO PRN (17:26)
[2024-04-30 20:05] VITALS: O2SAT 100
[2024-05-01 06:03] LABS: Absolute Eosinophils 0.1 K/uL (0-0.5); Absolute Lymphocytes (CBC) 1.7 K/uL (0.7-4.9); Absolute Monocytes 0.6 K/uL (0.1-1.3); Absolute Neutrophil 2.2 K/uL (1.8-8.0); Hematocrit 34.2 % (36.0-45.0); Hemoglobin 11.4 g/dL (12.0-15.0); Lymphocytes % 35.5 % (15.3-44.8); MCH 31.6 pg (27.0-35.0); MCHC 33.4 g/dL (32.0-36.0); MCV 94.6 fL (80-100); MPV 7.8 fL (7.6-11.3); Monocytes % 13.8 % (3.3-12.3); Neutrophils % 46.7 % (41.7-73.7); Platelets 154 thou/uL (152-406); RBC Red Blood Cell Count 3.62 M/uL (3.86-4.86); Red Cell Distribution Width 14.2 % (12.1-15.2)
[2024-05-01 06:18] LABS: AST/SGOT 11 U/L (15-37); Albumin/Globulin Ratio 1.1 (1.1-1.8); Alkaline Phosphatase 58 U/L (45-117); Anion Gap 5.6 mEq/L (5.0-15.0); BUN Blood Urea Nitrogen 16 mg/dL (7-18); Bicarbonate 27 mEq/L (21-32); Bilirubin Total 0.6 mg/dL (0.2-1.0); Globulin 2.7 g/dL (2.3-3.5); Glomerular Filtration Rate 56 ml/min (=/>90); Glucose Level 109 mg/dL (74-106); Magnesium 1.9 mg/dL (1.6-2.4); Potassium 3.6 mEq/L (3.5-5.1); Protein, Total 5.7 g/dL (6.4-8.2); Sodium Level 140 mEq/L (136-145)
[2024-05-01 06:19] LABS: ALT/SGPT < 14 U/L (13-56)
[2024-05-01] MEDS: HYDRALAZINE HCL 20 MG/ML VIAL IV PRN (06:55)
--- NOTE | 2024-05-01 08:17 | P.DS ---
Admission Date: 04/30/24 Discharge Date: 05/01/24 Reason for Admission: Fall, foot fracture fall, nondisplaced fibula fracture - Problems (1) Fall from bed, initial encounter Status: Acute (2) REESE (acute kidney injury) Status: Acute (3) Closed left fibular fracture Status: Acute (4) Near syncope Status: Acute Brief History of Present Illness: 83 yrs old Female with past medical hypertension, non-Hodgkin's lymphoma. presents to ER via EMS with complaints of Fall Injury, She reports falling out of bed attempting to transfer to [facility]. She reports Ankle pain, Injury. 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 She has pain and swelling of the left ankle. Suspected mechanical fall. She reported dizzimess, she does not remember hitting her head. HPI limited due to forgetfulness. she re remembers being on the floor. Caregiver and son is at bedside in emergency room she has no family close by other than her son in [place]. She denies any pain anywhere except left lower extremity no chest pain, shortness of breath. Plan to admit to obs for nondisplaced Fibula fracture, Fall, hyponatremia. Dr Roman orthopedic surg to consulted - Physical Exam General: Alert, In no apparent distress, Oriented x2 HEENT: Atraumatic, PERRLA, Mucous membr. moist/pink, EOMI, Sclerae nonicteric Neck: Supple, 2+ carotid pulse no bruit, No LAD, Without JVD or thyroid abnormality Respiratory: Clear to auscultation bilaterally, Normal air movement Cardiovascular: Regular rate/rhythm, Normal S1 S2 Gastrointestinal: Normal bowel sounds, Soft and benign, Non-distended, No tend erness Musculoskeletal: Tenderness, Other (Decreased range of motion of the left leg; splint placed for immobilization) Integumentary: No rashes Neurological: Normal speech, Normal tone, Cranial nerves 3-12 intact, Normal affect, Abnormal gait, Abnormal strength Lymphatics: No axilla or inguinal lymphadenopathy Hospital Course: 83 yrs old Female with past medical hypertension, non-Hodgkin's lymphoma. presents to ER via EMS with complaints of Fall Injury, She reports falling out of bed attempting to transfer to [facility]. She reports Ankle pain, Injury. 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 She has pain and swelling of the left ankle. She was noted to have closed fibular fracture, fall. Acute kidney injury. Was treated with IV fluids, physical therapy evaluation. Plan to discharge home with home health. Family to arrange 24-hour coverage after discharge. She needs to follow-up with orthopedic, and PCP after discharge Ankle x-ray FINDINGS: Diffuse osteopenia seen. Oblique fracture of the distal shaft of the fibula. Widening of the medial clear space is seen suggesting disruption of the syndesmotic ligament. Moderate soft tissue swelling Soft cast, to the left lower extremity will need to follow-up with orthopedic, call office for appointment Assessment Close left fibular fracture-Follow up ortho after DC, soft cast, NWB LLE Fall worked w PT w home sitter/caregiver prior to discharge Near syncopal episod Acute kidney injury treated with IV fluids Continue home medicines as previously prescribed GOAL: Clear understanding of disease process INSTRUCTIONS: Physician Discharge Instructions: -Follow-up with Dr. Roman after discharge, call office for appointment -Follow-up with PCP in 1 to 2 weeks -Please call Dr. Batres at [phone] if any questions regarding hospital stay -Please call nursing station at [phone] if any nursing or medication questions -Return to the emergency room if symptoms worsen Diet: ADA, low sodium Activity: Fall precautions <Keesha Lovell - Last Filed: 05/05/24 05:56> Admission Date: 04/30/24 Discharge Date: 05/01/24 - Problems (1) Closed left fibular fracture Status: Acute (2) Near syncope Status: Acute (3) REESE (acute kidney injury) Status: Acute Hospital Course: Patient was seen and examined. Events of the last 24 hours have been noted. Spoke with with [facility] regarding patient's clinical picture after evaluating and examining the patient independently. I performed a substantial part of the MDM during this patient's care today. I personally made or approved the documented management plan and acknowledge its risk of complications. I agree with the findings and documentation provided in the [facility]'s notes. <Fish Batres - Last Filed: 05/05/24 23:47> Disposition: DC HOME/HOME HEALTH CARE Discharge Condition: FAIR Vital Signs/Physical Exam: Temp Pulse Resp BP Pulse Ox 97.3 F 60 18 144/81 H 98 05/01/24 04:00 05/01/24 04:00 05/01/24 04:00 05/01/24 04:00 05/01/24 04:00 Laboratory Data at Discharge: WBC 4.70 thou/uL (4.3-10.9) 05/01/24 05:44 Hgb 11.4 g/dL (12.0-15.0) L D 05/01/24 05:44 Hct 34.2 % (36.0-45.0) L 05/01/24 05:44 Plt Count 154 thou/uL (152-406) 05/01/24 05:44 PT 11.4 SECONDS (9.4-12.5) 04/30/24 10:43 INR 1.02 04/30/24 10:43 APTT 32.3 SECONDS (24.3-36.9) 04/30/24 10:43 Sodium 140 mEq/L (136-145) 05/01/24 05:44 Potassium 3.6 mEq/L (3.5-5.1) 05/01/24 05:44 BUN 16 mg/dL (7-18) 05/01/24 05:44 Creatinine 1.00 mg/dL (0.55-1.02) 05/01/24 05:44 Glucose 109 mg/dL (74-106) H 05/01/24 05:44 Magnesium 1.9 mg/dL (1.6-2.4) 05/01/24 05:44 Total Bilirubin 0.6 mg/dL (0.2-1.0) 05/01/24 05:44 AST 11 U/L (15-37) L 05/01/24 05:44 ALT < 14 U/L (13-56) 05/01/24 05:44 Alkaline Phosphatase 58 U/L (45-117) 05/01/24 05:44 <Keesha Lovell - Last Filed: 05/05/24 05:56> Vital Signs/Physical Exam: Temp Pulse Resp BP Pulse Ox 97.8 F 80 18 182/73 H 96 05/01/24 12:00 05/01/24 12:00 05/01/24 12:00 05/01/24 12:00 05/01/24 12:00 Laboratory Data at Discharge: WBC 4.70 thou/uL (4.3-10.9) 05/01/24 05:44 Hgb 11.4 g/dL (12.0-15.0) L D 05/01/24 05:44 Hct 34.2 % (36.0-45.0) L 05/01/24 05:44 Plt Count 154 thou/uL (152-406) 05/01/24 05:44 PT 11.4 SECONDS (9.4-12.5) 04/30/24 10:43 INR 1.02 04/30/24 10:43 APTT 32.3 SECONDS (24.3-36.9) 04/30/24 10:43 Sodium 140 mEq/L (136-145) 05/01/24 05:44 Potassium Cancelled 05/01/24 13:00 BUN 16 mg/dL (7-18) 05/01/24 05:44 Creatinine 1.00 mg/dL (0.55-1.02) 05/01/24 05:44 Glucose 109 mg/dL (74-106) H 05/01/24 05:44 Magnesium 1.9 mg/dL (1.6-2.4) 05/01/24 05:44 Total Bilirubin 0.6 mg/dL (0.2-1.0) 05/01/24 05:44 AST 11 U/L (15-37) L 05/01/24 05:44 ALT < 14 U/L (13-56) 05/01/24 05:44 Alkaline Phosphatase 58 U/L (45-117) 05/01/24 05:44 <Fish Batres - Last Filed: 05/05/24 23:47> Diet: AHA Activity: Fall precautions Time spent managing pt's care (in minutes): 55 <Keesha Lovell - Last Filed: 05/05/24 05:56> <Fish Batres - Last Filed: 05/05/24 23:47> Home Medications: Bupropion *Xl* [Wellbutrin XL*] 150 mg PO Q48H 04/30/24 Pantoprazole Sodium [Protonix] 40 mg PO DAILY 04/30/24 Trazodone [Desyrel*] 150 mg PO BEDTIME 04/30/24 Carvedilol [Coreg] 12.5 mg PO BID 05/01/24 Levothyroxine [Synthroid*] 75 mcg PO [id number] 05/01/24 Physician Discharge Instructions: 83 yrs old Female with past medical hypertension, non-Hodgkin's lymphoma. presents to ER via EMS with complaints of Fall Injury, She reports falling out of bed attempting to transfer to [facility]. She reports Ankle pain, Injury. 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 She has pain and swelling of the left ankle. She was noted to have closed fibular fracture, fall. Acute kidney injury. Was treated with IV fluids, physical therapy evaluation. Plan to discharge home with home health. Family to arrange 24-hour coverage after discharge. She needs to follow-up with orthopedic, and PCP after discharge Ankle x-ray FINDINGS: Diffuse osteopenia seen. Oblique fracture of the distal shaft of the fibula. Widening of the medial clear space is seen suggesting di sruption of the syndesmotic ligament. Moderate soft tissue swelling Soft cast, to the left lower extremity will need to follow-up with orthopedic, call office for appointment Assessment Close left fibular fracture Fall Near syncopal episode Acute kidney injury treated with IV fluids Continue home medicines as previously prescribed GOAL: Clear understanding of disease process INSTRUCTIONS: Physician Discharge Instructions: -Follow-up with Dr. Roman after discharge, call office for appointment -Follow-up with PCP in 1 to 2 weeks -Please call Dr. Batres at [phone] if any questions regarding hospital stay -Please call nursing station at [phone] if any nursing or medication questions -Return to the emergency room if symptoms worsen Diet: ADA, low sodium Activity: Fall precautions Followup: OOT,OOT [Primary Care Provider] - Royal Roman MD [ACTIVE - CAN ADMIT] - 1-2 Weeks
[2024-05-01] MEDS ORDERED: carvediloL 12.5 MG TAB PO SCH (09:00)
[2024-05-01] MEDS: LEVOTHYROXINE SOD 0.075 MG TAB PO SCH (09:11)
[2024-05-01] MEDS: POTASSIUM CL SA 10 MEQ TAB PO ONE (09:11)
[2024-05-01] MEDS: carvediloL 12.5 MG TAB PO SCH (09:12)
[2024-05-01] MEDS: PANTOPRAZOLE 40MG TABLET PO SCH (09:12)
--- NOTE | 2024-05-01 10:50 | CON ---
Date of Consultation: 05/01/2024 Reason For Consultation: Left ankle injury. History Of Present Illness: Ms. Duran is an 83-year-old female, who presented to ER yesterday after sustaining a fall with a twisting injury to her left ankle. The patient was attempting to get to her bedside commode from her bed with subsequent pain to the left ankle and inability to bear weight. She was brought to the emergency room and had x-rays that demonstrated a distal fibula fracture. She was placed in a left lower extremity splint and admitted to the hospital for medical management and placement. The patient reports pain in the left ankle at this time. The patient denies any other musculoskeletal complaints. Review of Systems: As above, otherwise negative. Past Medical History: Includes hypertension, non-Hodgkin's lymphoma. Social History: Denies tobacco or alcohol use. Lives at home. Allergies: TO KEFLEX, CLINDAMYCIN, CODEINE, FLOXIN, BACTRIM, TRAMADOL. Family History: Reviewed and noncontributory. Physical Examination: General: No apparent distress. HEENT: Normocephalic, atraumatic. Neck: Supple. Cardiovascular: Brisk cap refill to all digits. Chest: Nonlabored breathing. Abdomen: Nondistended. Psychiatric: Responsive to exam. Musculoskeletal: Bilateral upper extremities functional range of motion without pain. No gross deformities noted. The patient has right lower extremity functional range of motion without pain. No gross deformities. No obvious dislocations. Left lower extremity splint in place. Sensation grossly intact to the dorsal and plantar foot. Positive firing of EHL and FHL. Diagnostic Studies: X-rays of the left ankle demonstrate a minimally displaced left distal fibula fracture with acceptable alignment. Overall, maintenance of ankle mortise without significant displacement or medial clear space widening. Assessment And Plan: Ms. Mendez is an 83-year-old female with a left distal fibula fracture. I discussed with the patient and family at length the diagnosis as well as treatment plan. Given the minimal displacement of femoral, proceed with a trial of nonoperative management. The patient will remain into the left lower extremity splint at this time. Remain nonweightbearing over the next 6 weeks. The patient will follow up in my clinic in 2 weeks for re- evaluation and x-rays of the left ankle. No surgical intervention is indicated at this time. CV/MODL Voice ID: [id number] Report ID: [id number] [facility]
--- NOTE | 2024-05-01 11:05 | RAD REPORT ---
Exam:Ankle Left 3 View HISTORY: left ankle pain FINDINGS: A cast immobilizes distal fibular fracture. Mild widening of the medial clear space.
--- NOTE | 2024-05-01 12:58 | EKG ---
Test Date: 2024-04-30 Test Time: 10:36:27 Transformer Inspector: LIYAH MEASUREMENT RESULTS: Intervals: Rate: 64 VA: 136 QRSD: 78 QT: 398 QTc: 410 [place]: P: 33 VA: 136 QRS: 45 T: 118 INTERPRETIVE STATEMENTS: Normal sinus rhythm Nonspecific T wave abnormality Abnormal ECG Compared to ECG 05/19/2009 16:08:31 T-wave abnormality now present Electronically Signed On 05-01-24 12:54:56 CDT by Alexis Lanier
[2024-05-01 13:06] VITALS: BP 182/73; TEMP 97.8
[2024-05-01] MEDS ORDERED: TRAZODONE 150 MG TAB PO SCH (21:00)
== END 2024-05-01 14:19 | disposition home health service (06) ==
LOC: ER 09:26 → ERHOLD 12:35 → INTOOBSV 12:35 → 2ND 17:57
PROVIDERS: ADMIT Hospitalist; ATTEND Hospitalist
DX: S82.435A Nondisplaced oblique fracture of shaft of left fibula, initial encounter for closed fracture (principal); N17.9 Acute kidney failure, unspecified; R55 Syncope and collapse; I10 Essential (primary) hypertension; C85.90 Non-Hodgkin lymphoma, unspecified, unspecified site; W06.XXXA Fall from bed, initial encounter; Y93.9 Activity, unspecified; Y92.013 Bedroom of single-family (private) house as the place of occurrence of the external cause; Z88.5 Allergy status to narcotic agent; Z88.1 Allergy status to other antibiotic agents
CPT/HCPCS: 93005; 85025 ×2; 81001; 36415; 83735; 82550; 85610; 83605; 85730; 84484; 80053 ×2; 83880; 70450; 71250; 71045; 72170; 73610 ×2; 97110 ×2; 97161; 97530 ×4; 51702; 99285; J0360; J7030; G0378

== ENCOUNTER 2024-05-30 19:16 | Emergency (ER) | payer OTHER ==
[2024-05-30] MEDS ORDERED: METOCLOPRAMIDE 10 MG/2mL INJ ONE (19:46)
[2024-05-30 19:48] LABS: Absolute Eosinophils 0.2 K/uL (0-0.5); Absolute Lymphocytes (CBC) 2.1 K/uL (0.7-4.9); Absolute Monocytes 0.6 K/uL (0.1-1.3); Absolute Neutrophil 3.7 K/uL (1.8-8.0); Basophils % 0.7 % (0-1.3); Eosinophils % 3.5 % (0-4.4); Hematocrit 35.1 % (36.0-45.0); Lymphocytes % 31.9 % (15.3-44.8); MCHC 34.1 g/dL (32.0-36.0); MCV 93.9 fL (80-100); MPV 7.7 fL (7.6-11.3); Monocytes % 9.4 % (3.3-12.3); Neutrophils % 54.5 % (41.7-73.7); Platelets 169 thou/uL (152-406); RBC Red Blood Cell Count 3.74 M/uL (3.86-4.86); Red Cell Distribution Width 14.4 % (12.1-15.2)
[2024-05-30 20:07] LABS: Anion Gap 7.5 mEq/L (5.0-15.0); Magnesium 1.8 mg/dL (1.6-2.4); Potassium 3.5 mEq/L (3.5-5.1); Troponin High Sensitivity 8.9 pg/mL (<58.9)
[2024-05-30 20:42] LABS: Specific Gravity 1.024 (1.005-1.030); Sqamous Epithelial <5 /HPF (None Seen); Urine Bacteria <20 /HPF (<20); Urine Bilirubin NEGATIVE (Negative); Urine Blood Negative (Negative); Urine Clarity Turbid (Clear); Urine Color Yellow (Yellow); Urine Culture Reflex Order NOT NEEDED; Urine Glucose NEGATIVE (Negative); Urine Ketones NEGATIVE (Negative); Urine Microscopic Reflex YN ORDER UMIC; Urine Mucus 2+ /HPF (None Seen); Urine Nitrite NEGATIVE (Negative); Urine Protein 1+ (Negative); Urine RBC <5 /HPF (None Seen); Urine Urobilinogen Normal (Normal); Urine WBC <5 /HPF (<5); Urine pH 5.5 (5.0-7.0)
--- NOTE | 2024-05-30 20:50 | RAD REPORT ---
Procedure: Chest Single View HISTORY: Hypoxia COMPARISON: April 30, 2024 FINDINGS: The lungs appear clear of acute infiltrate. No significant pleural effusion noted. The heart is normal size. IMPRESSION: No acute abnormality is displayed.
--- NOTE | 2024-05-30 22:13 | ER ---
Nurse's Notes [facility] Name: Vanessa Duran Age: 83 yrs Sex: Female : 1940 Arrival Date: 05/30/2024 Time: 19:16 Bed 6 Private MD: Diagnosis: Syncope Presentation: 05/30 19:18 Chief complaint: EMS states: per caregiver, near syncopal episode in shower at 1830 lg3 with generalized weakness. 20RAC initiated. 4mg Zofran and 300 ml NS administered in route. Coronavirus screen: Client denies travel out of the [place] in the last 14 days. At this time, the client does not indicate any symptoms associated with coronavirus-19. Risk Assessment: Do you want to hurt yourself or someone else? Patient reports no desire to harm self or others. Onset of symptoms was May 30, 2024. 19:18 Method Of Arrival: EMS: [facility] lg3 19:18 Acuity: BEATRIZ 3 lg3 20:05 Ebola Screen: No symptoms or risks identified at this time. Initial Sepsis Screen: Does al5 the patient meet any 2 criteria? No. Patient's initial sepsis screen is negative. Does the patient have a suspected source of infection? No. Patient's initial sepsis screen is negative. Care prior to arrival: IV initiated. 18 GA, in the right antecubital area. Historical: - Allergies: 19:19 AVALOX; lg3 19:19 juice and topical; lg3 19:19 Cleocin Hcl; lg3 19:19 Codeine; lg3 19:19 Floxin; lg3 19:19 Keflex; lg3 19:19 sulfamethoxazole-trimethoprim; lg3 19:19 Ultram; lg3 - Home Meds: 20:06 Wellbutrin Oral [Active]; Ativan Oral [Active]; Coreg Oral [Active]; al5 Hydrochlorothiazide Oral [Active]; Protonix Oral [Active]; Synthroid Oral [Active]; - PMHx: 19:19 Hypertension; Non-Hodgkins Lymphoma; lg3 - Immunization history:: Adult Immunizations up to date. - Infectious Disease History:: Denies. - Social history:: Smoking status: Patient denies any tobacco usage or history of. Patient/guardian denies using alcohol, street drugs. Screenin:02 [facility] ED Fall Risk Assessment (Adult) History of falling in the last 3 months, al5 including since admission Yes- single mechanical fall (1 pt) Confusion or Disorientation No (0 pts) Intoxicated or Sedated No (0 pts) Impaired Gait Yes (1 pt) Mobility Assist Device Used Yes (1 pt) Altered Elimination Yes (1 pt) Score/Fall Risk Level 3 or more points = High Risk Oriented to surroundings, Maintained a safe environment, Provided non-skid footwear, Hourly rounding (assess needs \T\ fall precautionary measures) done, Apply high fall risk patient identification: yellow non skid footwear/ fall signage, Utilized family, sitter, or virtual meter reader inspector as indicated. Abuse screen: Denies threats or abuse. Denies injuries from another. Nutritional screening: No deficits noted. Tuberculosis screening: No symptoms or risk factors identified. Assessment: 20:01 General: Appears in no apparent distress. comfortable, Behavior is calm, cooperative. al5 Pain: Denies pain. Neuro: Level of Consciousness is awake, alert, obeys commands, Oriented to person, place, time, situation. Cardiovascular: Patient's skin is warm and dry. Cardiovascular: Parent/caregiver reports patient has had syncope. Respiratory: Airway is patent Respiratory effort is even, unlabored, Respiratory pattern is regular, symmetrical. GI: No signs and/or symptoms were reported involving the gastrointestinal system. : No signs and/or symptoms were reported regarding the genitourinary system. EENT: No signs and/or symptoms were reported regarding the EENT system. Derm: Skin is intact, Skin is pink, warm \T\ dry. normal. Musculoskeletal: No signs and/or symptoms reported regarding the musculoskeletal system. has previous fracture to L lower leg, has medical boot on that leg. 20:49 Reassessment: Patient appears in no apparent distress at this time. No changes from al5 previously documented assessment. Patient and/or family updated on plan of care and expected duration. Pain level reassessed. Patient is alert, oriented x 3, equal unlabored respirations, skin warm/dry/pink. 22:12 Reassessment: Patient appears in no apparent distress at this time. Patient and/or al5 family updated on plan of care and expected duration. Pain level reassessed. Patient is alert, oriented x 3, equal unlabored respirations, skin warm/dry/pink. able to move patient from bed to wheelchair with assistance like at home, patient tolerated well Patient states feeling better. Vital Signs: 19:15 BP 170 / 66; Pulse 58; Resp 16; Temp 97.6; Pulse Ox 92% on R/A; Weight 58.97 kg; Height al5 5 ft. 1 in. ; Pain 0/10; 19:30 BP 158 / 46; Pulse 55; Resp 16; Pulse Ox 99% on 2 lpm NC; al5 19:45 BP 154 / 48; Pulse 61; Resp 14; Pulse Ox 99% on 2 lpm NC; al5 20:00 BP 134 / 69; Pulse 62; Resp 18; Pulse Ox 98% on 2 lpm NC; al5 20:15 BP 168 / 56; Pulse 65; Resp 15; Pulse Ox 99% on 2 lpm NC; al5 20:30 BP 165 / 59; Pulse 70; Resp 16; Pulse Ox 99% on 2 lpm NC; al5 20:45 BP 161 / 55; Pulse 71; Resp 13; Pulse Ox 99% on 2 lpm NC; al5 21:00 BP 160 / 58; Pulse 73; Resp 16; Pulse Ox 100% on 2 lpm NC; al5 21:15 BP 156 / 60; Pulse 70; Resp 14; Pulse Ox 100% on 2 lpm NC; al5 22:11 BP 147 / 68; Pulse 72; Resp 16; Pulse Ox 100% on 2 lpm NC; al5 19:15 Body Mass Index 24.56 (58.97 kg, 154.94 cm) al5 19:15 Pain Scale: Adult al5 ED Course: 19:18 Patient arrived in ED. lg3 19:18 Cathi Galvez PA-C is PHCP. sb4 19:18 Dayday Woo MD is Attending Physician. sb4 19:19 Triage completed. lg3 19:33 Katie Petersen, СЕРГЕЙ is Primary Nurse. al5 19:56 Urinalysis w/ reflexes Sent. al5 19:56 Troponin High Sensitivity Sent. al5 19:56 Magnesium Sent. al5 19:56 Basic Metabolic Panel Sent. al5 20:03 Patient has correct armband on for positive identification. Bed in low position. Call al5 light in reach. Side rails up X2. Adult w/ patient. Provided Education on: plan of care. 20:05 No provider procedures requiring assistance completed. Maintain EMS IV. Dressing al5 intact. Good blood return noted. Site clean \T\ dry. Gauge \T\ site: 18G RAC. Flushed with 10 mL NS. 20:06 Arm band placed on right wrist. Patient placed in the treatment room, on a stretcher. al5 20:28 Chest Single View XRAY In Process Unspecified. EDMS 22:29 IV discontinued, intact, bleeding controlled, No redness/swelling at site. Pressure al5 dressing applied. Administered Medications: 19:56 Drug: metoCLOPramide IVP 10 mg IVP once; over 1 to 2 minutes Route: IVP; Site: right al5 antecubital; 22:01 Follow up: Response: No adverse reaction; Nausea is decreased al5 Medication: 20:02 VIS not applicable for this client. al5 Outcome: 22:13 Discharge ordered by . sb4 22:29 Discharged to home via wheelchair, with family, home critical care unit nurse al5 22:29 Condition: good 22:29 Discharge instructions given to patient, medical secretary receptionist, Instructed on discharge instructions, follow up and referral plans. Demonstrated understanding of instructions, follow-up care, 22:30 Patient left the ED. al5 Signatures: Dispatcher [employer] EDMS Nighat Phillips RN RN [email or web address] aCthi Galvez PA-C PA-C sb4 Katie Petersen RN RN al5 Corrections: (The following items were deleted from the chart) 20:08 20:06 Home Meds: tranzondone; al5 al5 21:39 20:00 BP 134 / 69; Pulse 62bpm; Resp 18bpm; Pulse Ox 98% RA; al5 al5 21:39 20:15 BP 168 / 56; Pulse 65bpm; Resp 15bpm; Pulse Ox 99% RA; al5 al5 21:39 20:30 BP 165 / 59; Pulse 70bpm; Resp 16bpm; Pulse Ox 99% RA; al5 al5
--- NOTE | 2024-05-30 22:13 | EDPHYS ---
Physician Documentation [facility] Name: Vanessa Duran Age: 83 yrs Sex: Female : 1940 Arrival Date: 05/30/2024 Time: 19:16 Bed 6 Private MD: ED Physician Dayday Woo HPI: 05/30 19:31 This 83 yrs old Female presents to ER via EMS with complaints of generalized weakness, sb4 syncope. 19:33 caregiver states that she had just finished giving patient a shower this evening when sb4 she became very weak and had a syncopal episode. she was seated while it happened so did not fall or hit her head. EMS states that they initially couldn't obtain a blood pressure and she was hypoxic and bradycardic in route. vitals have improved upon arrival. patient endorses nausea but denies any other symptoms. Historical: - Allergies: 19:19 AVALOX; lg3 19:19 juice and topical; lg3 19:19 Cleocin Hcl; lg3 19:19 Codeine; lg3 19:19 Floxin; lg3 19:19 Keflex; lg3 19:19 sulfamethoxazole-trimethoprim; lg3 19:19 Ultram; lg3 - Home Meds: 20:06 Wellbutrin Oral [Active]; Ativan Oral [Active]; Coreg Oral [Active]; al5 Hydrochlorothiazide Oral [Active]; Protonix Oral [Active]; Synthroid Oral [Active]; - PMHx: 19:19 Hypertension; Non-Hodgkins Lymphoma; lg3 - Immunization history:: Adult Immunizations up to date. - Infectious Disease History:: Denies. - Social history:: Smoking status: Patient denies any tobacco usage or history of. Patient/guardian denies using alcohol, street drugs. ROS: 19:33 Constitutional: Negative for fever, chills, and weight loss, sb4 19:33 Abdomen/GI: Positive for nausea, 19:33 Neuro: Positive for syncope, weakness, 19:33 All other systems are negative, Exam: 19:36 Head/Face: Normocephalic, atraumatic. Eyes: Extra-ocular motions intact. Periorbital sb4 areas with no swelling, redness, or edema. ENT: Mucous membranes moist. Cardiovascular: Regular rate and rhythm with a normal S1 and S2. Respiratory: No increased work of breathing, no retractions or nasal flaring. Abdomen/GI: Soft, non-tender, no distension. Skin: Warm, dry with normal turgor. Normal color with no rashes, no lesions, and no evidence of cellulitis. 19:36 Constitutional: The patient appears alert, awake, pale, Vital Signs: 19:15 BP 170 / 66; Pulse 58; Resp 16; Temp 97.6; Pulse Ox 92% on R/A; Weight 58.97 kg; Height al5 5 ft. 1 in. ; Pain 0/10; 19:30 BP 158 / 46; Pulse 55; Resp 16; Pulse Ox 99% on 2 lpm NC; al5 19:45 BP 154 / 48; Pulse 61; Resp 14; Pulse Ox 99% on 2 lpm NC; al5 20:00 BP 134 / 69; Pulse 62; Resp 18; Pulse Ox 98% on 2 lpm NC; al5 20:15 BP 168 / 56; Pulse 65; Resp 15; Pulse Ox 99% on 2 lpm NC; al5 20:30 BP 165 / 59; Pulse 70; Resp 16; Pulse Ox 99% on 2 lpm NC; al5 20:45 BP 161 / 55; Pulse 71; Resp 13; Pulse Ox 99% on 2 lpm NC; al5 21:00 BP 160 / 58; Pulse 73; Resp 16; Pulse Ox 100% on 2 lpm NC; al5 21:15 BP 156 / 60; Pulse 70; Resp 14; Pulse Ox 100% on 2 lpm NC; al5 22:11 BP 147 / 68; Pulse 72; Resp 16; Pulse Ox 100% on 2 lpm NC; al5 19:15 Body Mass Index 24.56 (58.97 kg, 154.94 cm) al5 19:15 Pain Scale: Adult al5 MDM: 19:18 Medical Screening Exam initiated sb4 20:52 Data reviewed: vital signs, nurses notes, EMS record, lab test result(s), EKG, sb4 radiologic studies, and as a result, I will discharge patient. Consideration of Admission/Observation Escalation of care including admission/observation considered. Counseling: I had a detailed discussion with the patient and/or guardian regarding the historical points, exam findings, and any diagnostic results supporting the discharge/admit diagnosis, the presence of at least one elevated blood pressure reading (>120/80) during this emergency department visit, lab results, radiology results, the need for outpatient follow up, for definitive care, to return to the emergency department if symptoms worsen or persist or if there are any questions or concerns that arise at home. 05/30 19:26 Order name: Basic Metabolic Panel; Complete Time: 20:07 sb4 05/30 19:26 Order name: CBC with Diff; Complete Time: 19:58 sb4 05/30 19:26 Order name: Magnesium; Complete Time: 20:07 sb4 05/30 19:26 Order name: Troponin High Sensitivity; Complete Time: 20:07 sb4 05/30 19:26 Order name: Urinalysis w/ reflexes; Complete Time: 20:44 sb4 05/30 19:26 Order name: Chest Single View XRAY; Complete Time: 20:51 sb4 05/30 19:26 Order name: Cardiac monitoring; Complete Time: 19:56 sb4 05/30 19:26 Order name: EKG - Nurse/Tech; Complete Time: 19:56 sb4 05/30 19:26 Order name: IV Saline Lock; Complete Time: 19:33 sb4 05/30 19:26 Order name: Labs collected and sent; Complete Time: 19:34 sb4 05/30 19:26 Order name: O2 Per Protocol; Complete Time: 19:34 sb4 05/30 19:26 Order name: O2 Sat Monitoring; Complete Time: 19:34 sb4 05/30 20:51 Order name: PO challenge; Complete Time: 22:01 sb4 05/30 20:51 Order name: Misc. Order: ambulate; Complete Time: 22:13 sb4 EC:49 Rate is 56 beats/min. Rhythm is regular, Sinus bradycardia. TX interval is normal at sb4 176 msec. QRS interval is normal at 88 msec. QT interval is prolonged at 500 msec. No Q waves. T waves are Normal. No ST changes noted. Clinical impression: Sinus bradycardia. Interpreted by me. Reviewed by me. Administered Medications: 19:56 Drug: metoCLOPramide IVP 10 mg IVP once; over 1 to 2 minutes Route: IVP; Site: right al5 antecubital; 22:01 Follow up: Response: No adverse reaction; Nausea is decreased al5 Disposition Summary: 05/30/24 22:13 Discharge Ordered Notes: Location: Home sb4 Problem: new sb4 Symptoms: have improved sb4 Condition: Stable sb4 Diagnosis - Syncope sb4 Followup: sb4 - With: Emergency Department - When: As needed - Reason: If symptoms return, Worsening of condition Discharge Instructions: - Discharge Summary Sheet sb4 - Syncope, [id number] sb4 Forms: - Patient Portal Instructions sb4 - Leadership Thank You Letter sb4 Addendum: 06/01/2024 17:52 I was immediately available for consultation during this patient's visit. I did not e c2 personally see the patient or discuss the patient with the ADWOA. . Signatures: Dispatcher [employer] EDNighat Chavira, RN RN lg3 Cathi Galvez PA-C PASukhwinder sb4 Dayday Woo MD MD ec2 Katie Petersen RN RN al5 Corrections: (The following items were deleted from the chart) 05/30 19:26 19:26 BASIC METABOLIC PANEL+C.LAB.BRZ ordered. EDMS EDMS 19:26 19:26 CBC+H.LAB.BRZ ordered. EDMS EDMS 19:26 19:26 MAGNESIUM+C.LAB.BRZ ordered. EDMS EDMS 19:26 19:26 Troponin High Sensitivity+C.LAB.BRZ ordered. EDMS EDMS 19:26 19:26 Urinalysis+U.LAB.BRZ ordered. EDMS EDMS 19:26 19:26 Chest Single View+RAD.RAD.BRZ ordered. EDMS EDMS 20:08 20:06 Home Meds: tranzondone; al5 al5
[2024-05-30 22:42] VITALS: O2SAT 100
[2024-05-30 22:44] VITALS: BP 147/68
--- NOTE | 2024-06-03 12:23 | EKG ---
Test Date: 2024-05-30 Test Time: 19:41:33 Seismograph Chief: JUSTINA MEASUREMENT RESULTS: Intervals: Rate: 56 WA: 176 QRSD: 88 QT: 500 QTc: 482 Crandall: P: 58 WA: 176 QRS: 21 T: 101 INTERPRETIVE STATEMENTS: Sinus bradycardia Cannot rule out Anterior infarct, age undetermined Abnormal ECG Compared to ECG 04/30/2024 10:36:27 Myocardial infarct finding now present Sinus rhythm no longer present T-wave abnormality no longer present Electronically Signed On 06-03-24 12:17:30 RUBY SOFTWARE DEVELOPER by Alexis Lanier
== END 2024-05-30 22:30 | disposition home or self-care (01) ==
LOC: ER 19:16
DX: R55 Syncope and collapse (principal); R53.1 Weakness; I10 Essential (primary) hypertension; Z85.72 Personal history of non-Hodgkin lymphomas
CPT/HCPCS: 93005; 85025; 81001; 80048; 36415; 83735; 84484; 71045; 96374; 99284; J2765

== ENCOUNTER 2024-11-14 21:45 | Emergency (ER) | payer OTHER ==
--- NOTE | 2024-11-14 22:07 | RAD REPORT ---
EXAM: CT brain without contrast HISTORY: STROKE ALERT COMPARISON: None TECHNIQUE: Multiple contiguous axial images were obtained and a CT of the brain without contrast. Sag ittal and coronal reformats were performed. One or more of the following dose reduction techniques were used: Automated exposure control, adjust ment of the mA and/or kV according to patient size, and/or iterative reconstruction. FINDINGS: No evidence of hydrocephalus, intracranial hemorrhage, or extra-axial fluid collection. Mild brain atrophy with mild periventricular and deep white matter chronic microvascular ischemic ch anges present. No evidence of midline shift or areas of brain edema. The calvarium is intact. The visualized paranasal sinuses and mastoid air cells are essentially clear . IMPRESSION: No evidence of acute intracranial abnormality. The findings were communicated with John Meza MD at 11/14/2024 10:04 PM by text message.
--- NOTE | 2024-11-14 22:23 | RAD REPORT ---
EXAMINATION: ONE VIEW CHEST XR CLINICAL INDICATION: COUGH TECHNIQUE: Frontal chest projection is submitted. Examination is limited by patient positioning and t echnique. 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 No focal infiltrate detected. The he art is upper limit of normal in size. No displaced fractures identified.
[2024-11-14] MEDS ORDERED: FAMOTIDINE 20 MG/2 ML VIAL IV ONE (22:28)
[2024-11-14 22:29] LABS: PT Prothrombin Time 13.1 SECONDS (10-13.0); Protime INR 1.16
[2024-11-14] MEDS ORDERED: NA CHLORIDE 0.9% 1,000 ML ONE (22:29)
[2024-11-14] MEDS ORDERED: FOLIC ACID 5 MG/ML VIAL ONE (22:29)
--- NOTE | 2024-11-14 22:30 | RAD REPORT ---
EXAMINATION: CTA HEAD CLINICAL INDICATION: Pain;Dizziness TECHNIQUE: Axial CT images were obtained through the head after intravenous contrast utilizing angio raph protocol with 3D post-processing (maximum intensity projection images, volume rendered images and/or shaded surface rendered images). One or more of the following dose reduction technique s were used: Automated exposure control, adjustment of the mA and/or kV according to patient size, and/or iterative reconstruction. Unless otherwise specified, incidental findings do not require dedic ated imaging follow-up. COMPARISON: No prior exam. FINDINGS: ICA: The petrous, cavernous, and supraclinoid segments of the left internal carotid artery shows mode rate diminished flow. The right internal carotid artery segments are patent.. The ophthalmic artery origins are visualized and normal. The right P-comm is patent. Nonvisualized left P-comm.. SCOTT: Left A1 segment is diminutive with reduced flow and irregular. Right A1 segment is patent. The anterior communicating artery is patent. MCA: Moderate flow is diminished to the left MCA. The right MCA is patent. CITIZENSHIP TEACHER: Posterior cerebral arteries are normal bilaterally. Vertebrobasilar: Nonvisualized flow right V4 segment likely occluded. For flow seen in the left verte bral artery. Multifocal narrowing of the basilar artery which is diminutive but patent. 3D images confirm these findings. IMPRESSION: Moderate reduced flow is seen left intracranial ICA and branch vessels. 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 Significant irregularity of the basilar artery which is diminutive but patent.
[2024-11-14 22:31] LABS: Absolute Eosinophils 0.2 K/uL (0-0.5); Absolute Monocytes 0.6 K/uL (0.1-1.3); Absolute Neutrophil 2.1 K/uL (1.8-8.0); Basophils % 0.7 % (0-1.3); Eosinophils % 3.2 % (0-4.4); Hematocrit 36.7 % (36.0-45.0); Hemoglobin 12.8 g/dL (12.0-15.0); Lymphocytes % 41.4 % (15.3-44.8); MCH 32.1 pg (27.0-35.0); MCHC 34.9 g/dL (32.0-36.0); MCV 91.9 fL (80-100); MPV 7.8 fL (7.6-11.3); Monocytes % 11.7 % (3.3-12.3); Nucleated Red Blood Cells % 0.1 % (0-0); Platelets 158 thou/uL (152-406); RBC Red Blood Cell Count 3.99 M/uL (3.86-4.86); Red Cell Distribution Width 14.4 % (12.1-15.2)
[2024-11-14 22:33] LABS: Albumin 2.8 g/dL (3.4-5.0); Albumin/Globulin Ratio 1.1 (1.1-1.8); Alkaline Phosphatase 50 U/L (45-117); Anion Gap 9.1 mEq/L (5.0-15.0); BUN Blood Urea Nitrogen 14 mg/dL (7-18); Bicarbonate 24 mEq/L (21-32); Bilirubin Direct 0.2 mg/dL (0-0.2); Bilirubin Indirect, Calculated 0.4 mg/dL (0.2-0.8); Bilirubin Total 0.6 mg/dL (0.2-1.0); C-Reactive Protein 3.49 mg/L (<3.00); Globulin 2.6 g/dL (2.3-3.5); Glomerular Filtration Rate 73 ml/min (=/>90); Glucose Level 99 mg/dL (74-106); Magnesium 1.6 mg/dL (1.6-2.4); NT PRO-BNP 2893 pg/mL (<450); Potassium 3.1 mEq/L (3.5-5.1); Protein, Total 5.4 g/dL (6.4-8.2); Sodium Level 139 mEq/L (136-145)
[2024-11-14 22:34] LABS: ALT/SGPT < 14 U/L (13-56); AST/SGOT < 10 U/L (15-37)
--- NOTE | 2024-11-14 22:37 | RAD REPORT ---
EXAMINATION: CTA NECK CLINICAL INDICATION: NUMBNESS TECHNIQUE: Axial CT images were obtained from the aortic arch to the skull base after intravenous con trast utilizing angiographic protocol with 3D post-processing (maximum intensity projection images, volume rendered images and/or shaded surface rendered images). One or more of the following dose redu ction techniques were used: Automated exposure control, adjustment of the mA and/or kV according to patient size, and/or iterative reconstruction. Unless otherwise specified, incidental findings do not require dedicated imaging follow-up. COMPARISON: No prior exam. FINDINGS: AORTA: The imaged aortic arch is normal. CCA: Tortuous proximal right common carotid artery. ICA/ECA: Moderate soft plaque is present left carotid bulb/distal left common carotid artery results in stenosis of 70%. Mild mixed plaque is seen right carotid bulb resulting in mild stenosis. VERTEBRAL: Significant diminished flow is seen in the cervical right vertebral, predominantly superio r portions of V2 as well as V3 likely indicating occlusion. Moderate focal stenosis left V4 segment. SOFT TISSUE: No significant neck soft tissue abnormalities. The visualized lung apices are clear. 3D images confirm these findings. IMPRESSION: Moderate soft plaque left carotid bulb results in stenosis of approximately 70%. Significant diminished flow right V2 and V3 segments suggests occlusion. NASCET criteria used. Mild 0-49% stenosis Moderate 50-69% stenosis Severe 70-99% stenosis
--- NOTE | 2024-11-14 23:14 | EDPHYS ---
Physician Documentation [facility] Name: Vanessa Duran Age: 84 yrs Sex: Female : 1940 Arrival Date: 11/14/2024 Time: 21:45 Bed 20 Private MD: ED Physician John Meza HPI: 11/14 22:41 This 84 yrs old Female presents to ER via EMS with complaints of SYNCOPE ON clint TOLIET, RIGHT SIDE WEAKNESS, RIGHT FACIAL TOO AT 915 PM , AT 530 AMS , SLURREED SPEECH. 22:41 The patient presents with decreased mental status, decreased responsiveness, trouble clint concentrating. Historical: - Allergies: 22:01 AVALOX; me1 22:01 juice and topical; me1 22:01 Cleocin Hcl; me1 22:01 Codeine; me1 22:01 Floxin; me1 22:01 Keflex; me1 22:01 sulfamethoxazole-trimethoprim; me1 22:01 Ultram; me1 - PMHx: 22:01 Hypertension; Non-Hodgkins Lymphoma; me1 - Immunization history:: Adult Immunizations unknown. - Infectious Disease History:: Denies. - Social history:: Smoking status: unknown. ROS: 22:58 Constitutional: Negative for fever, chills, and weight loss, Eyes: Negative for injury, clint pain, redness, and discharge, ENT: Negative for injury, pain, and discharge, Neck: Negative for injury, pain, and swelling, Cardiovascular: Negative for chest pain, palpitations, and edema, Respiratory: Negative for shortness of breath, cough, wheezing, and pleuritic chest pain, Abdomen/GI: Negative for abdominal pain, nausea, vomiting, diarrhea, and constipation, Back: Negative for injury and pain, : Negative for injury, bleeding, discharge, and swelling, MS/Extremity: Negative for injury and deformity, Skin: Negative for injury, rash, and discoloration, Psych: Negative for depression, anxiety, suicide ideation, homicidal ideation, and hallucinations, Allergy/Immunology: Negative for hives, rash, and allergies, Endocrine: Negative for neck swelling, polydipsia, polyuria, polyphagia, and marked weight changes, Hematologic/Lymphatic: Negative for swollen nodes, abnormal bleeding, and unusual bruising, 22:58 Neuro: Positive for speech changes, near syncope, weakness, of the right arm and right leg, Exam: 23:01 Constitutional: This is a well developed, well nourished patient who is awake, alert, clint and in no acute distress. Head/Face: Normocephalic, atraumatic. Eyes: Pupils equal round and reactive to light, extra-ocular motions intact. Lids and lashes normal. Conjunctiva and sclera are non-icteric and not injected. Cornea within normal limits. Periorbital areas with no swelling, redness, or edema. ENT: Nares patent. No nasal discharge, no septal abnormalities noted. Tympanic membranes are normal and external auditory canals are clear. Oropharynx with no redness, swelling, or masses, exudates, or evidence of obstruction, uvula midline. Mucous membranes moist. Neck: Trachea midline, no thyromegaly or masses palpated, and no cervical lymphadenopathy. Supple, full range of motion without nuchal rigidity, or vertebral point tenderness. No Meningismus. Chest/axilla: Normal chest wall appearance and motion. Nontender with no deformity. No lesions are appreciated. Cardiovascular: Regular rate and rhythm with a normal S1 and S2. No gallops, murmurs, or rubs. Normal PMI, no JVD. No pulse deficits. Respiratory: Lungs have equal breath sounds bilaterally, clear to auscultation and percussion. No rales, rhonchi or wheezes noted. No increased work of breathing, no retractions or nasal flaring. Abdomen/GI: Soft, non-tender, with normal bowel sounds. No distension or tympany. No guarding or rebound. No evidence of tenderness throughout. Back: No spinal tenderness. No costovertebral tenderness. Full range of motion. Skin: Warm, dry with normal turgor. Normal color with no rashes, no lesions, and no evidence of cellulitis. MS/ Extremity: Pulses equal, no cyanosis. Neurovascular intact. Full, normal range of motion., bilateral aka Neuro: Awake and alert, GCS 15, oriented to person, place, time, and situation. Cranial nerves II-XII grossly intact. Motor strength 5/5 in all extremities. Sensory grossly intact. Cerebellar exam normal. Normal gait. Psych: Awake, alert, with orientation to person, place and time. Behavior, mood, and affect are within normal limits. 23:01 ECG was reviewed by the Attending Physician. Vital Signs: 22:11 BP 192 / 80; Pulse 75; Resp 17; Temp 98.4; Pulse Ox 95% ; Weight 51.71 kg; Pain 0/10; me1 22:15 BP 202 / 109; Pulse 73; Resp 21; Pulse Ox 95% ; me1 22:30 BP 192 / 61; Pulse 72; Resp 21; Pulse Ox 96% ; me1 22:45 BP 193 / 67; Pulse 71; Resp 17; Pulse Ox 97% ; me1 23:00 BP 166 / 75; Pulse 76; Resp 16; Pulse Ox 97% ; me1 23:15 BP 166 / 117; Pulse 82; Resp 17; Pulse Ox 98% ; me1 23:30 BP 202 / 105; Pulse 72; Resp 16; Pulse Ox 98% ; me1 23:45 BP 206 / 101; Pulse 75; Resp 18; Pulse Ox 98% ; me1 22:11 Pain Scale: Adult me1 NIH Stroke Scale Scores: 21:55 NIHSS Score: 8 me1 22:15 NIHSS Score: 0 me1 23:36 NIHSS Score: 0 clint Aquilino Coma Score: 23:36 Eye Response: spontaneous(4). Motor Response: obeys commands(6). Verbal Response: clint oriented(5). Total: 15. MDM: 21:48 Medical Screening Exam initiated clint 23:08 Differential Diagnosis: CVA, electrolyte abnormality, hypoglycemia, intracranial bleed, clint meningitis, pneumonia, seizure, volume depletion. Data reviewed: vital signs, nurses notes, EMS record, lab test result(s), EKG, radiologic studies, CT scan, plain films. Consideration of Admission/Observation Escalation of care including admission/observation considered. I considered the following discharge prescriptions or medication management in the emergency department Medications were administered in the Emergency Department. See MAR. Independent interpretation of the following test(s) in the Emergency Department EKG: See my EKG interpretation above. Test considered but Not performed: MRI: NO MRI. Historians other than the Patient: 2 CARE GIVERS, SPEECH AND MS CHANGES FOR PAT 36 HOURS. Care significantly affected by the following chronic conditions: Hypertension, Cancer. 23:37 ED course: UPON ARRIVAL ON WAY TO CT RIGHT FACIAL DROOP, SPEECH WAS SLOW. [facility] 11/14 21:52 Order name: Basic Metabolic Panel; Complete Time: 22:38 [facility] 11/14 21:52 Order name: CBC with Diff; Complete Time: 22:38 [facility] 11/14 21:52 Order name: LFT's; Complete Time: 22:38 [facility] 11/14 21:52 Order name: Magnesium; Complete Time: 22:38 [facility] 11/14 21:52 Order name: NT PRO-BNP; Complete Time: 22:38 [facility] 11/14 21:52 Order name: PT-INR; Complete Time: 22:38 [facility] 11/14 21:52 Order name: Troponin HS; Complete Time: 22:38 [facility] 11/14 21:52 Order name: CRP; Complete Time: 22:38 [facility] 11/14 22:24 Order name: Glucose, Ancillary Testing; Complete Time: 22:38 [facility] 11/14 21:52 Order name: XRAY Chest (1 view); Complete Time: 22:38 [facility] 11/14 21:52 Order name: CT Stroke Brain w/o Contrast; Complete Time: 22:20 [facility] 11/14 21:52 Order name: CT Head Angio; Complete Time: 22:38 [facility] 11/14 21:52 Order name: CT Neck Angio; Complete Time: 22:38 [facility] 11/14 21:52 Order name: Cardiac monitoring; Complete Time: 00:14 [facility] 11/14 21:52 Order name: EKG - Nurse/Tech; Complete Time: 00:14 [facility] 11/14 21:52 Order name: IV Saline Lock; Complete Time: 00:14 [facility] 11/14 21:52 Order name: Labs collected and sent; Complete Time: 00:14 [facility] 11/14 21:52 Order name: O2 Per Protocol; Complete Time: 00:14 [facility] 11/14 21:52 Order name: O2 Sat Monitoring; Complete Time: 00:14 [facility] EC:01 Rate is 75 beats/min. Rhythm is regular. QRS Prospect is Normal. CO interval is normal. QRS clint interval is normal. QT interval is normal. No Q waves. T waves are Normal in leads I, II, aVL, V2. ST Segment is depressed in leads I, II, aVL, aVF, V2, V3, V4, V5, V6. Clinical impression: NSR w/ Non-specific ST/T Changes. Interpreted by me. Reviewed by me. Administered Medications: 23:10 Drug: Clopidogrel PO 75 mg PO once Route: PO; [facility] 23:55 Follow up: Response: No adverse reaction rg5 23:10 Drug: Potassium PO Effervescent Tablet 25 mEq PO once; dissolve in 4 ounces of water or rg5 juice Route: PO; 23:55 Follow up: Response: No adverse reaction rg5 23:22 Drug: foLIC Acid IVPB 1 mg IVPB once Route: IVPB; Site: left antecubital; me1 23:38 Follow up: Response: No adverse reaction; IV Status: Completed infusion me1 23:22 Drug: NS 0.9% IV 1000 ml IV at 1 bolus Per protocol; to be given as a bolus over 60 me1 minutes Route: IV; Rate: 1 bolus; Site: left antecubital; 23:38 Follow up: Response: No adverse reaction; IV Status: Completed infusion; IV Intake: me1 1000ml 23:22 Drug: Famotidine IVP 20 mg IVP once; dilute with 10 mL 0.9% NaCl; give over 2 minutes me1 Route: IVP; Site: left antecubital; 23:38 Follow up: Response: No adverse reaction me1 23:37 Drug: Aspirin PO Chewable Tablet 162 mg PO once Route: PO; me1 23:38 Follow up: Response: No adverse reaction me1 Disposition Summary: 11/14/24 23:13 Transfer Ordered Notes: Transfer Location: [facility] clint Reason: Higher level of care clint Condition: Fair clint Problem: new clint Symptoms: have improved clint Accepting Physician: TO ER [facility] (11/15/24 00:41) rg5 Diagnosis - Cerebral infarction, unspecified - WITH FINDINGS OF LVO , NOT A TNK PT SECONDARY TO clint TIME - Syncope Near clint - Essential (primary) hypertension clint - Hypokalemia clint Forms: - Medication Reconciliation Form clint - SBAR form clint NIH Stroke Scale - NIH Stroke Score Date: 11/14/2024 Time: 21:55 Total Score = 8 10. Dysarthria (speech clarity - read or repeat words) - UN(Intubated) - Notes: not follwing commands. UTD 11. Extinction and Inattention (visual/tactile/auditory/spatial/personal) - 0(No abnormality) 1a. Level of Consciousness (LOC) - 0(Alert) 1b. Level of Consciousness (LOC) (Month \T\ Age) - 2(Neither) 1c. LOC Commands (Open \T\ Closes Eyes/E Commerce Developer) - 2(Neither) 2. Best Gaze (Lateral Gaze Paresis) - 0(Normal) 3. Visual Field Loss - 0(No visual loss) 4. Facial Palsy - 1(Minor Paralysis) 5a. Left Arm: Motor (10-second hold) - 0(No drift) 5b. Right Arm: Motor (10-second hold) - 1(Drift) 6a. Left Leg: Motor (5-second hold - always test supine) - UN(Amputation, joint fusion) - Notes: nonambulatory at baseline 6b. Right Leg: Motor (5-second hold - always test supine) - UN(Amputation, joint fusion) - Notes: nonambulatory at baseline 7. Limb Ataxia (finger/nose \T\ heel/doan - test with eyes open) - 0(Absent) 8. Sensory Loss (pinprick arms/legs/face) - 0(Normal) 9. Best Language: Aphasia (description/naming/reading) - 2(Severe aphasia) Initials: me1 NIH Stroke Scale - NIH Stroke Score Date: 11/14/2024 Time: 22:15 Total Score = 0 10. Dysarthria (speech clarity - read or repeat words) - 0(Normal) 11. Extinction and Inattention (visual/tactile/auditory/spatial/personal) - 0(No abnormality) 1a. Level of Consciousness (LOC) - 0(Alert) 1b. Level of Consciousness (LOC) (Month \T\ Age) - 0(Both) 1c. LOC Commands (Open \T\ Closes Eyes/E Commerce Developer) - 0(Both) 2. Best Gaze (Lateral Gaze Paresis) - 0(Normal) 3. Visual Field Loss - 0(No visual loss) 4. Facial Palsy - 0(Normal) 5a. Left Arm: Motor (10-second hold) - 0(No drift) 5b. Right Arm: Motor (10-second hold) - 0(No drift) 6a. Left Leg: Motor (5-second hold - always test supine) - 0(No drift) 6b. Right Leg: Motor (5-second hold - always test supine) - 0(No drift) 7. Limb Ataxia (finger/nose \T\ heel/doan - test with eyes open) - 0(Absent) 8. Sensory Loss (pinprick arms/legs/face) - 0(Normal) 9. Best Language: Aphasia (description/naming/reading) - 0(No aphasia) Initials: me1 NIH Stroke Scale - NIH Stroke Score Date: 11/14/2024 Time: 23:36 Total Score = 0 10. Dysarthria (speech clarity - read or repeat words) - 0(Normal) 11. Extinction and Inattention (visual/tactile/auditory/spatial/personal) - 0(No abnormality) 1a. Level of Consciousness (LOC) - 0(Alert) 1b. Level of Consciousness (LOC) (Month \T\ Age) - 0(Both) 1c. LOC Commands (Open \T\ Closes Eyes/E Commerce Developer) - 0(Both) 2. Best Gaze (Lateral Gaze Paresis) - 0(Normal) 3. Visual Field Loss - 0(No visual loss) 4. Facial Palsy - 0(Normal) 5a. Left Arm: Motor (10-second hold) - 0(No drift) 5b. Right Arm: Motor (10-second hold) - 0(No drift) 6a. Left Leg: Motor (5-second hold - always test supine) - 0(No drift) 6b. Right Leg: Motor (5-second hold - always test supine) - 0(No drift) 7. Limb Ataxia (finger/nose \T\ heel/doan - test with eyes open) - 0(Absent) 8. Sensory Loss (pinprick arms/legs/face) - 0(Normal) 9. Best Language: Aphasia (description/naming/reading) - 0(No aphasia) Initials: clint Signatures: Dispatcher [employer] EDJohn Perez MD MD cha Eddleman, Michelle RN RN me1 Rufus Jefferson RN RN rg5 Corrections: (The following items were deleted from the chart) 21:52 21:52 BASIC METABOLIC PANEL+C.LAB.BRZ ordered. EDMS EDMS 21:52 21:52 CBC+H.LAB.BRZ ordered. EDMS EDMS 21:52 21:52 HEPATIC FUNCTION+C.LAB.BRZ ordered. EDMS EDMS 21:52 21:52 MAGNESIUM+C.LAB.BRZ ordered. EDMS EDMS 21:52 21:52 PROBNP+C.LAB.BRZ ordered. EDMS EDMS 21:52 21:52 PROTIME (+INR)+COAG.LAB.BRZ ordered. EDMS EDMS 21:52 21:52 Troponin High Sensitivity+C.LAB.BRZ ordered. EDMS EDMS 21:52 C-REACTIVE PROTEIN+C.LAB.BRZ ordered. EDMS EDMS 21:52 Chest Single View+RAD.RAD.BRZ ordered. EDMS EDMS 21:52 CT-STROKE BRAIN W/O CONTRAST+CT.RAD.BRZ ordered. EDMS EDMS 21:52 Head Angio+CT.RAD.BRZ ordered. EDMS EDMS 21:52 Neck Angio+CT.RAD.BRZ ordered. EDMS EDMS 23: 23:13 TO ER [facility] clint clint 11/15 00:41 11/14 23:18 TO ER [facility] clint rg5
--- NOTE | 2024-11-14 23:14 | ER ---
Nurse's Notes [facility] Name: Vanessa Duran Age: 84 yrs Sex: Female : 1940 Arrival Date: 11/14/2024 Time: 21:45 Bed 20 Private MD: Diagnosis: Cerebral infarction, unspecified-WITH FINDINGS OF LVO , NOT A TNK PT SECONDARY TO TIME;Syncope Near;Essential (primary) hypertension;Hypokalemia Presentation: 11/14 21:46 Chief complaint: EMS states: toned out for right facial droop, drooling, RUE weakness me1 and responding inappropriately. LNW 21:15. At Baseline patient is A\T\Ox4 and chairbound/nonambulatory. BGL 110, NSR, 18g LAC. Coronavirus screen: Vaccine status: At this time, the client does not indicate any symptoms associated with coronavirus-19. Ebola Screen: No symptoms or risks identified at this time. Risk Assessment: Do you want to hurt yourself or someone else? Patient reports no desire to harm self or others. Onset of symptoms was November 14, 2024 at 21:15. 21:46 Method Of Arrival: EMS: [facility] me1 21:46 Acuity: BEATRIZ 2 me1 Triage Assessment: 22:01 General: Appears in no apparent distress. well groomed, well developed, well nourished, me1 Behavior is calm, cooperative, appropriate for age. Pain: Unable to use pain scale. Does not appear to understand pain scale. EENT: No signs and/or symptoms were reported regarding the EENT system. Neuro: Level of Consciousness is awake, alert, confused, does not follow commands. Oriented to Cyber Security Consultant are weak on right Weakness in right arm(s) Gait is nonambulatory at baseline. Speech with expressive aphasia noted, Facial droop on right, Pupils are PERRLA, UTD as patient wont answer questions or follow commands at this time. Babinski no response. Cardiovascular: Patient's skin is warm and dry. Respiratory: Airway is patent Respiratory effort is even, unlabored, Respiratory pattern is regular, symmetrical. GI: No signs and/or symptoms were reported involving the gastrointestinal system. : No signs and/or symptoms were reported regarding the genitourinary system. Derm: Skin is intact, is fragile, is thin, with poor turgor Skin is Skin is pink, warm \T\ dry. Musculoskeletal: No signs and/or symptoms reported regarding the musculoskeletal system. Historical: - Allergies: 22:01 AVALOX; me1 22:01 juice and topical; me1 22:01 Cleocin Hcl; me1 22:01 Codeine; me1 22:01 Floxin; me1 22:01 Keflex; me1 22:01 sulfamethoxazole-trimethoprim; me1 22:01 Ultram; me1 - PMHx: 22:01 Hypertension; Non-Hodgkins Lymphoma; me1 - Immunization history:: Adult Immunizations unknown. - Infectious Disease History:: Denies. - Social history:: Smoking status: unknown. Screenin:[facility] ED Fall Risk Assessment (Adult) History of falling in the last 3 months, me1 including since admission No falls in past 3 months (0 pts) Confusion or Disorientation No (0 pts) Intoxicated or Sedated No (0 pts) Impaired Gait Yes (1 pt) Mobility Assist Device Used Yes (1 pt) Altered Elimination No (0 pt) Score/Fall Risk Level 0 - 2 = Low Risk Maintained a safe environment, Provided non-skid footwear, Hourly rounding (assess needs \T\ fall precautionary measures) done. Abuse screen: Denies threats or abuse. Nutritional screening: No deficits noted. Tuberculosis screening: No symptoms or risk factors identified. 22:30 Rock Swallow Protocol Exclusion Criteria: Unable to remain alert for testing: No NPO me1 for medical/surgical reason by provider order No Brief Cognitive Screen What is your name? Normal, Where are you right now? Normal, What year is it? Normal. Oral Mechanism Examination Facial Symmetry: Normal, Motion: Normal, Lip Closure: Normal, Oral Mechanism Result: Normal. 3 oz Water Swallow Challenge: Pt able to drink all water without stopping, coughing, choking or throat clearing: Yes Result: GARCIA VAUGHAN Notified: John Meza MD. Assessment: 22:15 Reassessment: Patient and/or family updated on plan of care and expected duration. Pain me1 level reassessed. Patient is alert, oriented x 3, equal unlabored respirations, skin warm/dry/pink. Patient starts responding to questions from nurse on the way back from [place]. NIH upon arrival to room is 0. Dr Meza aware. Patient states symptoms have improved. 22:31 Reassessment: EDIT LNW to 17:30 after patient's cg states she was having some right me1 sided weakness earlier today. Dr Meza aware. 23:33 Reassessment: Called report to [facility] to СЕРГЕЙ Segovia. Family at bedside me1 and aware that patient is going via [facility]. Vital Signs: 22:11 BP 192 / 80; Pulse 75; Resp 17; Temp 98.4; Pulse Ox 95% ; Weight 51.71 kg; Pain 0/10; me1 22:15 BP 202 / 109; Pulse 73; Resp 21; Pulse Ox 95% ; me1 22:30 BP 192 / 61; Pulse 72; Resp 21; Pulse Ox 96% ; me1 22:45 BP 193 / 67; Pulse 71; Resp 17; Pulse Ox 97% ; me1 23:00 BP 166 / 75; Pulse 76; Resp 16; Pulse Ox 97% ; me1 23:15 BP 166 / 117; Pulse 82; Resp 17; Pulse Ox 98% ; me1 23:30 BP 202 / 105; Pulse 72; Resp 16; Pulse Ox 98% ; me1 23:45 BP 206 / 101; Pulse 75; Resp 18; Pulse Ox 98% ; me1 22:11 Pain Scale: Adult me1 Hull Coma Score: 23:36 Eye Response: spontaneous(4). Motor Response: obeys commands(6). Verbal Response: clint oriented(5). Total: 15. NIH Stroke Scale Scores: 21:55 NIHSS Score: 8 me1 22:15 NIHSS Score: 0 me1 23:36 NIHSS Score: 0 [facility] ED Course: 21:47 Patient arrived in ED. rv1 21:48 John Meza MD is Attending Physician. clint 21:59 Haley Marx, СЕРГЕЙ is Primary Nurse. me1 22:01 Triage completed. me1 22:01 Arm band placed on Patient placed in an exam room. me1 22:04 CT Stroke Brain w/o Contrast In Process Unspecified. EDMS 22:09 CT Head Angio In Process Unspecified. EDMS 22:09 CT Neck Angio In Process Unspecified. EDMS 22:15 XRAY Chest (1 view) In Process Unspecified. EDMS 22:15 Patient has correct armband on for positive identification. Bed in low position. Call me1 light in reach. Side rails up X2. Provided Education on: POC. Verbalized understanding.. Client placed on continuous cardiac and pulse oximetry monitoring. NIBP monitoring applied. campus monitor on. Pulse ox on. NIBP on. 22:15 No provider procedures requiring assistance completed. Maintain EMS IV. Dressing me1 intact. Good blood return noted. Site clean \T\ dry. Gauge \T\ site: 18 g LAC. Flushed with 10 mL NS. Administered Medications: 23:10 Drug: Clopidogrel PO 75 mg PO once Route: PO; rg5 23:55 Follow up: Response: No adverse reaction rg5 23:10 Drug: Potassium PO Effervescent Tablet 25 mEq PO once; dissolve in 4 ounces of water or rg5 juice Route: PO; 23:55 Follow up: Response: No adverse reaction 5 23:22 Drug: foLIC Acid IVPB 1 mg IVPB once Route: IVPB; Site: left antecubital; me1 23:38 Follow up: Response: No adverse reaction; IV Status: Completed infusion me1 23:22 Drug: NS 0.9% IV 1000 ml IV at 1 bolus Per protocol; to be given as a bolus over 60 me1 minutes Route: IV; Rate: 1 bolus; Site: left antecubital; 23:38 Follow up: Response: No adverse reaction; IV Status: Completed infusion; IV Intake: me1 1000ml 23:22 Drug: Famotidine IVP 20 mg IVP once; dilute with 10 mL 0.9% NaCl; give over 2 minutes me1 Route: IVP; Site: left antecubital; 23:38 Follow up: Response: No adverse reaction me1 23:37 Drug: Aspirin PO Chewable Tablet 162 mg PO once Route: PO; me1 23:38 Follow up: Response: No adverse reaction me1 Medication: 22:15 VIS not applicable for this client. me1 Intake: 23:38 IV: 1000ml; Total: 1000ml. me1 Outcome: 23:13 ER care complete, transfer ordered by MD. jaramillo 11/15 00:34 Transferred by helicopter to [facility], [facility], 5 Condition: stable Instructed on the need for transfer, 00:41 Patient left the ED. rg5 NIH Stroke Scale - NIH Stroke Score Date: 11/14/2024 Time: 21:55 Total Score = 8 10. Dysarthria (speech clarity - read or repeat words) - UN(Intubated) - Notes: not follwing commands. UTD 11. Extinction and Inattention (visual/tactile/auditory/spatial/personal) - 0(No abnormality) 1a. Level of Consciousness (LOC) - 0(Alert) 1b. Level of Consciousness (LOC) (Month \T\ Age) - 2(Neither) 1c. LOC Commands (Open \T\ Closes Eyes/Awning Hanger Helper) - 2(Neither) 2. Best Gaze (Lateral Gaze Paresis) - 0(Normal) 3. Visual Field Loss - 0(No visual loss) 4. Facial Palsy - 1(Minor Paralysis) 5a. Left Arm: Motor (10-second hold) - 0(No drift) 5b. Right Arm: Motor (10-second hold) - 1(Drift) 6a. Left Leg: Motor (5-second hold - always test supine) - UN(Amputation, joint fusion) - Notes: nonambulatory at baseline 6b. Right Leg: Motor (5-second hold - always test supine) - UN(Amputation, joint fusion) - Notes: nonambulatory at baseline 7. Limb Ataxia (finger/nose \T\ heel/doan - test with eyes open) - 0(Absent) 8. Sensory Loss (pinprick arms/legs/face) - 0(Normal) 9. Best Language: Aphasia (description/naming/reading) - 2(Severe aphasia) Initials: me1 NIH Stroke Scale - NIH Stroke Score Date: 11/14/2024 Time: 22:15 Total Score = 0 10. Dysarthria (speech clarity - read or repeat words) - 0(Normal) 11. Extinction and Inattention (visual/tactile/auditory/spatial/personal) - 0(No abnormality) 1a. Level of Consciousness (LOC) - 0(Alert) 1b. Level of Consciousness (LOC) (Month \T\ Age) - 0(Both) 1c. LOC Commands (Open \T\ Closes Eyes/Awning Hanger Helper) - 0(Both) 2. Best Gaze (Lateral Gaze Paresis) - 0(Normal) 3. Visual Field Loss - 0(No visual loss) 4. Facial Palsy - 0(Normal) 5a. Left Arm: Motor (10-second hold) - 0(No drift) 5b. Right Arm: Motor (10-second hold) - 0(No drift) 6a. Left Leg: Motor (5-second hold - always test supine) - 0(No drift) 6b. Right Leg: Motor (5-second hold - always test supine) - 0(No drift) 7. Limb Ataxia (finger/nose \T\ heel/doan - test with eyes open) - 0(Absent) 8. Sensory Loss (pinprick arms/legs/face) - 0(Normal) 9. Best Language: Aphasia (description/naming/reading) - 0(No aphasia) Initials: kairna NIH Stroke Scale - NIH Stroke Score Date: 11/14/2024 Time: 23:36 Total Score = 0 10. Dysarthria (speech clarity - read or repeat words) - 0(Normal) 11. Extinction and Inattention (visual/tactile/auditory/spatial/personal) - 0(No abnormality) 1a. Level of Consciousness (LOC) - 0(Alert) 1b. Level of Consciousness (LOC) (Month \T\ Age) - 0(Both) 1c. LOC Commands (Open \T\ Closes Eyes/Awning Hanger Helper) - 0(Both) 2. Best Gaze (Lateral Gaze Paresis) - 0(Normal) 3. Visual Field Loss - 0(No visual loss) 4. Facial Palsy - 0(Normal) 5a. Left Arm: Motor (10-second hold) - 0(No drift) 5b. Right Arm: Motor (10-second hold) - 0(No drift) 6a. Left Leg: Motor (5-second hold - always test supine) - 0(No drift) 6b. Right Leg: Motor (5-second hold - always test supine) - 0(No drift) 7. Limb Ataxia (finger/nose \T\ heel/doan - test with eyes open) - 0(Absent) 8. Sensory Loss (pinprick arms/legs/face) - 0(Normal) 9. Best Language: Aphasia (description/naming/reading) - 0(No aphasia) Initials: clint Signatures: Dispatcher [employer] EDJohn Perez MD MD cha Villegas, Rebecca rv1 Haley Marx, СЕРГЕЙ RN me1 Rufus Jefferson RN RN rg5 Corrections: (The following items were deleted from the chart) 00:04 11/14 21:15 BP 192 / 80; Pulse 75bpm; Resp 17bpm; Pulse Ox 95%; Temp 98.4F; me1 51.71 kg; Pain 0/10, Adult; me1 11/15 00:07 11/14 22:01 Neuro: Level of Consciousness is awake, alert, confused, does not me1 follow commands. Oriented to Cyber Security Consultant are weak on right Weakness in right arm(s) Gait is nonambulatory at baseline. Speech with expressive aphasia noted, Facial droop on right, me1
[2024-11-14] MEDS ORDERED: CLOPIDOGREL 75 MG TABLET ONE (23:24)
[2024-11-14] MEDS ORDERED: POTASSIUM 25 MEQ EFFERV TAB ONE (23:24)
[2024-11-14] MEDS ORDERED: ASPIRIN EC 81 MG TAB PO ONE (23:31)
[2024-11-15 00:47] VITALS: TEMP 98.4
[2024-11-15 00:53] VITALS: O2SAT 98
[2024-11-15 00:55] VITALS: BP 206/101
== END 2024-11-15 00:41 | disposition short-term general hospital (02) ==
LOC: ER 21:45
DX: I63.9 Cerebral infarction, unspecified (principal); I10 Essential (primary) hypertension; E87.6 Hypokalemia; R29.708 NIHSS score 8; Z85.72 Personal history of non-Hodgkin lymphomas
CPT/HCPCS: 93005; 85025; 80048; 36415; 83735; 85610; 82565; 82947; 80076; 84484; 83880; 86140; 70496; 70498; 70450; 71045; Q9967; J7030; 96365; 96375; 99285

== ENCOUNTER 2024-11-25 09:07 | Inpatient (IN) | payer OTHER ==
[2024-11-25] MEDS ORDERED: ACETAMINOPHEN 650MG/RECT SUPP PR ONE (09:35)
[2024-11-25 09:58] LABS: Absolute Basophils 0.1 K/uL (0-0.5); Absolute Eosinophils 0.1 K/uL (0-0.5); Absolute Lymphocytes (CBC) 1.6 K/uL (0.7-4.9); Absolute Monocytes 1.1 K/uL (0.1-1.3); Absolute Neutrophil 5.7 K/uL (1.8-8.0); Basophils % 0.7 % (0-1.3); Eosinophils % 0.8 % (0-4.4); Hematocrit 36.6 % (36.0-45.0); Hemoglobin 12.8 g/dL (12.0-15.0); Lymphocytes % 18.2 % (15.3-44.8); MCH 31.7 pg (27.0-35.0); MCHC 34.9 g/dL (32.0-36.0); MCV 91.1 fL (80-100); MPV 8.3 fL (7.6-11.3); Monocytes % 13.3 % (3.3-12.3); Platelets 179 thou/uL (152-406); RBC Red Blood Cell Count 4.02 M/uL (3.86-4.86); Red Cell Distribution Width 14.2 % (12.1-15.2)
--- NOTE | 2024-11-25 09:59 | RAD REPORT ---
EXAM: CT brain without contrast HISTORY: AMS, recent CVA COMPARISON: 11/14/2024 TECHNIQUE: Multiple contiguous axial images were obtained and a CT of the brain without contrast. Sag ittal and coronal reformats were performed. One or more of the following dose reduction techniques were used: Automated exposure control, adjust ment of the mA and/or kV according to patient size, and/or iterative reconstruction. FINDINGS: No evidence of hydrocephalus, intracranial hemorrhage, or extra-axial fluid collection. Moderate brain atrophy with moderate periventricular and deep white matter chronic microvascular isc hemic changes present. There is a 3.5 cm length area of diminished density left periventricular centrum semiovale white matter which was not seen on the prior study presumably subacute CVA. No bloo d is present. The calvarium is intact. The visualized paranasal sinuses and mastoid air cells are essentially clear . IMPRESSION: 3.5 cm length area of diminished density left periventricular centrum semiovale white matter, new sin ce the prior CT head, presumably subacute CVA. No blood is present.
[2024-11-25 10:05] LABS: PT Prothrombin Time 13.3 SECONDS (10-13.0); PTT, Activated Partial Thromb 29.5 SECONDS (27.2-37.4); Protime INR 1.18
[2024-11-25 10:14] LABS: Albumin 3.2 g/dL (3.4-5.0); Albumin/Globulin Ratio 0.9 (1.1-1.8); Anion Gap 9.1 mEq/L (5.0-15.0); Bilirubin Total 1.2 mg/dL (0.2-1.0); Globulin 3.4 g/dL (2.3-3.5); Potassium 3.1 mEq/L (3.5-5.1); Protein, Total 6.6 g/dL (6.4-8.2)
--- NOTE | 2024-11-25 10:15 | RAD REPORT ---
EXAMINATION: ONE VIEW CHEST XR CLINICAL INDICATION: fever, sob TECHNIQUE: Frontal chest projection is submitted. Examination is limited by patient positioning and t echnique. COMPARISON: 11/14/2024 FINDINGS: Mild bilateral interstitial lung opacities may represent interstitial pulmonary edema or bronchitis. The heart is prominent in size with tortuous thoracic aorta. No displaced fractures identified.
[2024-11-25 10:24] LABS: Influenza A Ag Negative; Influenza B Ag Negative; SARS-CoV-2 Antigen Rapid Res Negative (Negative)
[2024-11-25] MEDS ORDERED: AZITHROMYCIN 500 MG INJ IVPB ONE (10:52)
[2024-11-25] MEDS ORDERED: NA CHLORIDE 0.9% 250 ML ONE (10:52)
--- NOTE | 2024-11-25 11:01 | ER ---
Nurse's Notes [facility] Name: Vanessa Duran Age: 84 yrs Sex: Female : 1940 Arrival Date: 11/25/2024 Time: 09:07 Bed 2 Private MD: Diagnosis: Pneumonia, unspecified organism;Altered mental status, unspecified;Subacute cerebral infarction Presentation: 11/25 09:28 Chief complaint: EMS states: they were called by the patients caregiver for elevated ap3 blood pressure and the patient was observed to have "belly breathing". Caregiver also stated to EMS that the patient stopped following commands on Monday. Coronavirus screen: At this time, the client does not indicate any symptoms associated with coronavirus-19. Ebola Screen: No symptoms or risks identified at this time. Initial Sepsis Screen: Does the patient meet any 2 criteria? No. Patient's initial sepsis screen is negative. Does the patient have a suspected source of infection? No. Patient's initial sepsis screen is negative. Risk Assessment: Do you want to hurt yourself or someone else? Patient reports no desire to harm self or others. Onset of symptoms is unknown. 09:28 Method Of Arrival: EMS ap3 09:28 Acuity: BEATRIZ 2 ap3 Triage Assessment: 09:31 General: Appears in no apparent distress. Behavior is calm. Pain: Unable to use pain ap3 scale. patient is non-verbal after a past CVA. Neuro: Level of Consciousness is awake, patient attempts to follow commands on left side of body. Cardiovascular: Patient's skin is warm and dry. Respiratory: Airway is patent Respiratory effort is even, unlabored, Respiratory pattern is regular, symmetrical, tachypnea. Historical: - Allergies: 09:19 AVALOX; ll1 09:19 juice and topical; ll1 09:19 Cleocin Hcl; ll1 09:19 Codeine; ll1 09:19 Floxin; ll1 09:19 Keflex; ll1 09:19 sulfamethoxazole-trimethoprim; ll1 09:19 Ultram; ll1 - PMHx: 09:19 Hypertension; Non-Hodgkins Lymphoma; ll1 09:19 Cerebrovascular accident; Transient cerebral ischemia; ll1 - Immunization history:: Adult Immunizations up to date. - Infectious Disease History:: Denies. - Family history:: not pertinent. - Hospitalizations: : Patient was recently seen at. - Social history:: Smoking status: Patient denies any tobacco usage or history of. Screenin:48 [facility] ED Fall Risk Assessment (Adult) History of falling in the last 3 months, ll1 including since admission No falls in past 3 months (0 pts) Confusion or Disorientation No (0 pts) Intoxicated or Sedated No (0 pts) Impaired Gait Yes (1 pt) Mobility Assist Device Used No (0 pt) Altered Elimination No (0 pt) Score/Fall Risk Level 0 - 2 = Low Risk Maintained a safe environment, Hourly rounding (assess needs \\T\\ fall precautionary measures) done. Abuse screen: Denies threats or abuse. Nutritional screening: No deficits noted. Tuberculosis screening: No symptoms or risk factors identified. Assessment: 09:57 Reassessment: No changes from previously documented assessment. Patient and/or family ll1 updated on plan of care and expected duration. Pain level reassessed. Patient is alert, oriented x 3, equal unlabored respirations, skin warm/dry/pink. 10:26 Reassessment: No changes from previously documented assessment. Patient and/or family ll1 updated on plan of care and expected duration. Pain level reassessed. Patient is alert, oriented x 3, equal unlabored respirations, skin warm/dry/pink. 11:13 Reassessment: No changes from previously documented assessment. Patient and/or family ll1 updated on plan of care and expected duration. Pain level reassessed. Patient is alert, oriented x 3, equal unlabored respirations, skin warm/dry/pink. 11:37 Reassessment: No changes from previously documented assessment. Kavon Weber at . ll1 11:55 Reassessment: No changes from previously documented assessment. Patient and/or family ll1 updated on plan of care and expected duration. Pain level reassessed. 13:30 Reassessment: No changes from previously documented assessment. Patient and/or family ll1 updated on plan of care and expected duration. Pain level reassessed. 15:00 Reassessment: No changes from previously documented assessment. Patient and/or family ll1 updated on plan of care and expected duration. Pain level reassessed. 16:25 Reassessment: No changes from previously documented assessment. Patient and/or family ll1 updated on plan of care and expected duration. Pain level reassessed. Patient is alert, oriented x 3, equal unlabored respirations, skin warm/dry/pink. Vital Signs: 09:28 BP 210 / 72; Pulse 90; Resp 26; Temp 99.2(O); Pulse Ox 95% on R/A; ap3 09:57 BP 178 / 57; Pulse 78; Resp 22; Pulse Ox 97% ; ll1 10:45 BP 192 / 70; Pulse 83; Pulse Ox 95% ; ll1 11:37 BP 208 / 67; Pulse 86; Pulse Ox 96% on R/A; ll1 11:54 BP 184 / 68; Pulse 90; Resp 20; Pulse Ox 98% ; ll1 13:00 BP 178 / 69; Pulse 82; Resp 22; Pulse Ox 96% on R/A; ll1 14:00 BP 179 / 65; Pulse 79; Resp 21; Pulse Ox 95% on R/A; ll1 15:00 BP 161 / 63; Pulse 71; Resp 20; Pulse Ox 96% ; ll1 16:23 BP 169 / 56; Pulse 76; Resp 20; Temp 97.6(A); Pulse Ox 97% on R/A; Pain 0/10; ll1 16:23 Pain Scale: Adult 1 ED Course: 09:09 Patient arrived in ED. mr 09:09 Valente Cervantes MD is Attending Physician. rn 09:10 Mallorie Wilburn RN is Primary Nurse. ll1 09:25 Provided Education on: ER procedures and process. ll1 09:31 Triage completed. ap3 09:32 Patient has correct armband on for positive identification. Bed in low position. Call ap3 light in reach. Side rails up X2. Client placed on continuous cardiac and pulse oximetry monitoring. NIBP monitoring applied. personnel monitor on. Pulse ox on. NIBP on. 09:34 CT Head Brain wo Cont In Process Unspecified. EDMS 09:40 Initial lab(s) drawn, by me. Inserted saline lock: 20 gauge in right antecubital area, 1 using aseptic technique. Blood collected. Flushed with 10 mL NS. 09:57 Blood Culture Adult (2) Sent. ll1 10:07 Chest Single View XRAY In Process Unspecified. EDMS 10:26 No provider procedures requiring assistance completed. Sneed cath inserted, using ll1 sterile technique, 18 Fr., by me, balloon inflated, to gravity drainage, urine specimen collected. 10:59 Imtiaz Cervantes MD is Hospitalizing Provider. rn 11:12 Urinalysis w/ reflexes Sent. ll1 14:48 Patient admitted, IV remains in place. ll1 14:49 Arm band placed on right wrist. ll1 Administered Medications: 10:25 Drug: Acetaminophen OK Suppository 650 mg OK once Route: OK; ll1 14:50 Follow up: Response: No adverse reaction ll1 10:36 CANCELLED (Duplicate Order): [id number] mg PO once rn 11:12 Drug: Zithromax IVPB 500 mg IVPB once over 1 hrs; mix in 250 mL NS Route: IVPB; Infused ll1 Over: 1 hrs; Site: right antecubital; 12:13 Follow up: Response: No adverse reaction; IV Status: Completed infusion; IV Intake: ll1 250ml Medication: 14:49 VIS not applicable for this client. ll1 Intake: 12:13 IV: 250ml; Total: 250ml. ll1 Outcome: 10:59 Discharge ordered by . rn 11:00 Decision to Hospitalize by Provider. rn 14:48 Admitted to ER Hold. Please see [facility] for further documentation. ll1 14:48 Condition: stable 14:48 Instructed on the need for admit, 17:09 Patient left the ED. ll1 Signatures: Dispatcher [employer] EDMD AlexTayla, Reg Reg mr Valente Cervantes MD MD rn Prokisch, Amanda, RN RN ap3 Mallorie Wilburn RN RN ll1 Corrections: (The following items were deleted from the chart) 11:37 11:13 BP 123 / 74; Pulse 61bpm; Resp 20bpm; Pulse Ox 97%; ll1 ll1
--- NOTE | 2024-11-25 11:01 | EDPHYS ---
Physician Documentation [facility] Name: Vanessa Duran Age: 84 yrs Sex: Female : 1940 Arrival Date: 11/25/2024 Time: 09:07 Bed 2 Private MD: ED Physician Valente Cervantes HPI: 11/25 09:25 This 84 yrs old Female presents to ER via Unassigned with complaints of sob. rn 09:25 The patient has shortness of breath at rest. Onset: The symptoms/episode began/occurred rn at an unknown time. Duration: The symptoms are continuous. The patient's shortness of breath. EMS reports caregiver and son are concerned for shortness of breath, rapid breathing. Noticed this morning but unsure when it began. Has low-grade fever here. Patient diagnosed with stroke in the last 2 weeks, has right-sided deficits, aphasic.. Historical: - Allergies: 09:19 AVALOX; ll1 09:19 juice and topical; ll1 09:19 Cleocin Hcl; ll1 09:19 Codeine; ll1 09:19 Floxin; ll1 09:19 Keflex; ll1 09:19 sulfamethoxazole-trimethoprim; ll1 09:19 Ultram; ll1 - PMHx: 09:19 Hypertension; Non-Hodgkins Lymphoma; ll1 09:19 Cerebrovascular accident; Transient cerebral ischemia; ll1 - Immunization history:: Adult Immunizations up to date. - Infectious Disease History:: Denies. - Family history:: not pertinent. - Hospitalizations: : Patient was recently seen at. - Social history:: Smoking status: Patient denies any tobacco usage or history of. ROS: 09:25 Unable to obtain ROS due to altered mental status, Recent CVA, rn Exam: 09:25 Constitutional: This is a well developed, well nourished patient who is awake, alert, rn aphasic, difficult to get her to follow commands Head/Face: Normocephalic, atraumatic. ENT: Dry mucous membranes Cardiovascular: Regular rate and irregular rhythm. No pulse deficits. Respiratory: Mild tachypnea Abdomen/GI: Soft, non-tender, no discoloration, no distention, no peritoneal signs or grimacing during exam MS/ Extremity: Pulses equal, no cyanosis. Neuro: Awake, alert, slow to follow commands but eventually does with coaching. Patient has right lower facial droop, aphasic, right-sided hemiparesis. 09:47 ECG was reviewed by the Attending Physician. rn Vital Signs: 09:28 BP 210 / 72; Pulse 90; Resp 26; Temp 99.2(O); Pulse Ox 95% on R/A; ap3 09:57 BP 178 / 57; Pulse 78; Resp 22; Pulse Ox 97% ; ll1 10:45 BP 192 / 70; Pulse 83; Pulse Ox 95% ; ll1 11:37 BP 208 / 67; Pulse 86; Pulse Ox 96% on R/A; ll1 11:54 BP 184 / 68; Pulse 90; Resp 20; Pulse Ox 98% ; ll1 13:00 BP 178 / 69; Pulse 82; Resp 22; Pulse Ox 96% on R/A; ll1 14:00 BP 179 / 65; Pulse 79; Resp 21; Pulse Ox 95% on R/A; ll1 15:00 BP 161 / 63; Pulse 71; Resp 20; Pulse Ox 96% ; ll1 16:23 BP 169 / 56; Pulse 76; Resp 20; Temp 97.6(A); Pulse Ox 97% on R/A; Pain 0/10; ll1 16:23 Pain Scale: Adult ll1 MDM: 09:10 Medical Screening Exam initiated rn 10:05 ED course: Family told EMS that they were concerned she had another stroke or TIA on rn Monday as they noticed some new symptoms.. 10:57 Differential diagnosis: Anemia Bronchitis pneumonia, Pneumothorax pulmonary edema. rn Antibiotic administration: Data reviewed: vital signs, nurses notes, lab test result(s), EKG, radiologic studies, CT scan, plain films, and as a result, I will admit patient. Consideration of Admission/Observation Patient was admitted/placed on observation. Escalation of care including admission/observation considered. Independent interpretation of the following test(s) in the Emergency Department X-Ray: My interpretation is Chest x-ray images show bilateral infiltrates per my interpretation. Counseling: I had a detailed discussion with the patient and/or guardian regarding the historical points, exam findings, and any diagnostic results supporting the discharge/admit diagnosis, lab results, radiology results, the need for further work-up and treatment in the hospital. Response to treatment: the patient's symptoms have mildly improved after treatment, and as a result, I will admit patient. 11/25 09:22 Order name: Blood Culture Adult (2) rn 11/25 09:22 Order name: CBC with Diff; Complete Time: 10:05 rn 11/25 09:22 Order name: CMP; Complete Time: 10: rn 11/25 09:22 Order name: Lactate w/ 2H reflex if indic.; Complete Time: 10: rn 11/25 09:22 Order name: Protime (+inr); Complete Time: 10: rn 11/25 09:22 Order name: Ptt, Activated; Complete Time: 10: rn 11/25 09:22 Order name: Urinalysis w/ reflexes; Complete Time: 11:34 rn 11/25 09:22 Order name: COVID-19 Ag + Flu A+B Ag; Complete Time: 10: rn 11/25 11:52 Order name: Basic Metabolic Panel EDMS 11/25 11:52 Order name: Basic Metabolic Panel EDMS 11/25 11:52 Order name: Basic Metabolic Panel EDMS 11/25 11:52 Order name: Basic Metabolic Panel EDMS 11/25 11:52 Order name: Basic Metabolic Panel EDMS 11/25 11:52 Order name: CBC with Automated Diff EDMS 11/25 11:52 Order name: CBC with Automated Diff EDMS 11/25 11:52 Order name: CBC with Automated Diff EDMS 11/25 11:52 Order name: CBC with Automated Diff EDMS 11/25 11:52 Order name: CBC with Automated Diff EDMS 11/25 11:52 Order name: T4 Free EDMS 11/25 11:52 Order name: T4 Free EDMS 11/25 11:52 Order name: Thyroid Stimulating Hormone EDMS 11/25 11:52 Order name: Thyroid Stimulating Hormone EDMS 11/25 09:22 Order name: Chest Single View XRAY; Complete Time: 10: rn 11/25 09:22 Order name: CT Head Brain wo Cont; Complete Time: 10:05 rn 11/25 11:52 Order name: Occupational Therapy Consult EDKS 11/25 11:52 Order name: Physical Therapy Consult EDKS 11/25 11:52 Order name: Speech Therapy Consult [facility] 11/25 09:22 Order name: Cardiac monitoring; Complete Time: 09:29 rn 11/25 09:22 Order name: Cath; Complete Time: 10:25 rn 11/25 09:22 Order name: EKG - Nurse/Tech; Complete Time: : rn 11/25 09:22 Order name: IV Saline Lock - Large Bore; Complete Time: 09:49 rn 11/25 09:22 Order name: Labs collected and sent; Complete Time: 09:49 rn 11/25 09:22 Order name: O2 Per Protocol; Complete Time: : rn 11/25 09:22 Order name: O2 Sat Monitoring; Complete Time: rn 11/25 09:22 Order name: Vital Signs; Complete Time: rn EC:47 Rate is 91 beats/min. Rhythm is irregular. QRS [place] is Normal. MN interval is normal. rn QRS interval is normal. QT interval is normal. No Q waves. T waves are Normal. No ST changes noted. Clinical impression: NSR w/ Non-specific ST/T Changes. Interpreted by me. Reviewed by me. Administered Medications: :25 Drug: Acetaminophen MN Suppository 650 mg MN once Route: MN; ll1 14:50 Follow up: Response: No adverse reaction ll1 10:36 CANCELLED (Duplicate Order): [id number] mg PO once rn 11:12 Drug: Zithromax IVPB 500 mg IVPB once over 1 hrs; mix in 250 mL NS Route: IVPB; Infused ll1 Over: 1 hrs; Site: right antecubital; 12:13 Follow up: Response: No adverse reaction; IV Status: Completed infusion; IV Intake: ll1 250ml Disposition Summary: 11/25/24 11:00 Hospitalization Ordered Notes: Hospitalization Status: Inpatient Admission rn Provider: Imtiaz Cervantes rn Condition: Stable(11/25/24 11:00) rn Problem: new(11/25/24 11:00) rn Symptoms: have improved(11/25/24 11:00) rn Bed/Room Type: Standard rn Location: Telemetry/MedSurg (Inpatient)(11/25/24 16:10) bd Room Assignment: 225(11/25/24 16:10) bd Diagnosis - Pneumonia, unspecified organism(11/25/24 11:00) rn - Altered mental status, unspecified(11/25/24 11:00) rn - Subacute cerebral infarction rn Forms: - Medication Reconciliation Form rn - SBAR form rn - Leadership Thank You Letter rn Signatures: Dispatcher [employer] EDMS Lulu Yoon bd Valente Cervantes MD MD rn Lewis, Lynsay, RN RN ll1 Niya Blandon RN RN kb3 Corrections: (The following items were deleted from the chart) 09: 09:22 BLOOD CULTURE*+BA.LAB.BRZ ordered. EDMS EDMS 09:22 09:22 CBC+H.LAB.BRZ ordered. EDMS EDMS 09:22 09:22 COMPREHENSIVE METABOLIC PANEL+C.LAB.BRZ ordered. EDMS EDMS 09:22 09:22 LACTATE+C.LAB.BRZ ordered. EDMS EDMS 09:22 09:22 PROTIME (+INR)+COAG.LAB.BRZ ordered. EDMS EDMS 09:22 09:22 PTT, ACTIVATED+COAG.LAB.BRZ ordered. EDMS EDMS 09:22 09:22 Urinalysis+U.LAB.BRZ ordered. EDMS EDMS 09:22 09:22 Chest Single View+RAD.RAD.BRZ ordered. EDMS EDMS 09:22 09:22 COVID-19 Ag + Flu A+B Ag+I.LAB.BRZ ordered. EDMS EDMS 10:36 10:36 Doxycycline PO 100 mg PO once ordered. rn rn 10:59 10:59 Home rn rn 10:59 10:59 new rn rn 10:59 10:59 have improved rn rn 10:59 10:59 Stable rn rn 10:59 10:59 Pneumonia, unspecified organism rn rn 10:59 10:59 Altered mental status, unspecified rn rn 10:59 10:59 Subacute cerebral infarction rn rn 11:38 09:22 Accucheck ordered. rn ll1 13:28 11:00 Telemetry/MedSurg (Inpatient) rn kb3 13:28 11:00 rn kb3 16:10 13:28 [facility] ER HOLD kb3 bd 16:10 13:28 ERHOLD- kb3 bd
[2024-11-25 11:27] LABS: Specific Gravity 1.025 (1.005-1.030); Sqamous Epithelial <5 /HPF (None Seen); Urine Bacteria None Seen /HPF (<20); Urine Bilirubin NEGATIVE (Negative); Urine Blood Trace (Negative); Urine Clarity Clear (Clear); Urine Color Yellow (Yellow); Urine Culture Reflex Order NOT NEEDED; Urine Glucose NEGATIVE (Negative); Urine Ketones 2+ (Negative); Urine Microscopic Reflex YN ORDER UMIC; Urine Mucus Slight /HPF (None Seen); Urine Nitrite NEGATIVE (Negative); Urine Protein 1+ (Negative); Urine RBC <5 /HPF (None Seen); Urine Urobilinogen 1+ (Normal); Urine WBC <5 /HPF (<5)
[2024-11-25] MEDS ORDERED: ONDANSETRON 4 MG/2 ML VIAL IV PRN (11:46)
[2024-11-25] MEDS: NA CHLORIDE 0.9% 1,000 ML IV SCH (12:00)
[2024-11-25] MEDS ORDERED: NA CHLORIDE 0.9% 1,000 ML ONE (13:17)
--- NOTE | 2024-11-25 14:15 | P.HP ---
Certification for Inpatient Patient admitted to: Inpatient With expected LOS: >2 Midnights Patient will require the following post-hospital care: None Practitioner: I am a practitioner with admitting privileges, knowledge of patient current condition, hospital course, and medical plan of care. Services: Services provided to patient in accordance with Admission requirements found in Title 42 Section 412.3 of the Code of Federal Regulations Patient History Date of Service: 11/25/24 Reason for admission: Pneumonia, CVA History of Present Illness: 84-year-old female with recent history of ischemic CVA, hypertension, hyperlipidemia presents to the emergency department chief complaint of decreased mentation, aphasia, increasing right sided deficits. She was admitted at [facility] around 2 weeks ago, there was some concern that she may be a candidate for vascular intervention from her last stroke but she was not. She was doing well when she was discharged from the hospital on Thursday 11/16, in the last few days it was noted by family that she had been getting worse, not able to speak with worsening right sided weakness. Patient was brought to the emergency department for evaluation she said of low- grade temp and possible pneumonia on the chest x-ray, CBC was unremarkable potassium was 3.1. CT of the head was performed which showed 3.5 cm length area of diminished density left periventricular centrum semiovale white matter new since the prior CT head presumably a subacute CVA. Discussed plan of care with family, will admit, rehydrate and treat with antibiotics to see if there is some component of metabolic encephalopathy versus worsening CVA. Patient is a DNR, would not want any feeding tubes etc. Allergies cephalexin [From Keflex] Allergy (Verified 04/30/24 15:26) Rash clindamycin [From Cleocin] Allergy (Verified 04/30/24 15:26) Rash codeine Allergy (Verified 04/30/24 15:26) Rash ofloxacin [From Floxin] Allergy (Verified 04/30/24 15:26) Rash sulfamethoxazole [From Bactrim] Allergy (Verified 04/30/24 15:26) Rash tramadol [From Ultram] Allergy (Verified 04/30/24 15:26) Rash trimethoprim [From Bactrim] Allergy (Verified 04/30/24 15:26) Rash Home Medications: Bupropion *Xl* [Wellbutrin XL*] 150 mg PO Q48H 04/30/24 Pantoprazole Sodium [Protonix] 40 mg PO DAILY 04/30/24 Trazodone [Desyrel*] 150 mg PO BEDTIME 04/30/24 Levothyroxine [Synthroid*] 75 mcg PO [id number] 05/01/24 carvediloL [Coreg] 12.5 mg PO BID 05/01/24 Aspirin [Aspirin EC] 81 mg PO 11/25/24 Clopidogrel Bisulfate [Plavix] 75 mg PO 11/25/24 Levothyroxine Sodium 1 tab PO DAILY 11/25/24 buPROPion HCL [Wellbutrin*] 1.5 tab PO DAILY 11/25/24 - Past Medical/Surgical History Has patient received pneumonia vaccine in the past: Yes -: Hypertension -: Fall -: Nondisplaced fibula fracture -: non-Hodgkin's lymphoma -: CVA Psychosocial/ Personal History: lives at home with family - Social History Smoking Status: Never smoker Alcohol use: No CD- Drugs: No Caffeine use: No Place of Residence: Home Review of Systems is unable to be obtained Physical Examination - Physical Exam General: Alert, Confused, Other (aphasia, follows simple commands) HEENT: Atraumatic Neck: Supple Respiratory: Clear to auscultation bilaterally Cardiovascular: No edema Capillary refill: <2 Seconds Gastrointestinal: Normal bowel sounds, Soft and benign Musculoskeletal: No clubbing, No contractures Neurological: Other (Aphasic, right extremities flaccid, movement against gravity with left side, right facial droop) - Studies Laboratory Data (last 24 hrs) 11/25/24 11/25/24 11/25/24 09:42 09:42 09:42 WBC 8.60 Hgb 12.8 Hct 36.6 Plt Count 179 PT 13.3 H INR 1.18 APTT 29.5 Sodium 137 Potassium 3.1 L BUN 10 Creatinine 0.75 Glucose 125 H Total Bilirubin 1.2 H AST 23 ALT 22 Alkaline Phosphatase 60 Assessment and Plan - Plan Assessment: Subacute CVA with worsening symptoms Suspected pneumonia Metabolic encephalopathy versus worsening CVA symptoms Hypertension Plan: Subacute CVA with worsening symptoms Suspected pneumonia Metabolic encephalopathy versus worsening CVA symptoms Patient now with aphasia, worse right-sided deficits N.p.o. for now, speech evaluation Patient/family would not want feeding tube or other aggressive measures Will continue IV fluids and antibiotics for the next 48 to 72 hours and monitor for improvement PT, OT, speech therapy consultations placed CT shows subacute CVA, was initially transferred to weeks ago for possible vascular dimension, not a candidate per team at [facility] Hypertension Need to hold oral medications at this time, as needed IV antihypertensive agents DVT PPX: Lovenox Code status: Full Discharge Plan: Home Plan to discharge in: Greater than 2 days - Advance Directives Does patient have a Living Will: Yes Does patient have a Durable POA for Healthcare: Yes - Code Status/Comfort Care Code Status Assessed: Yes (DNAR) Critical Care: No Time Spent Managing Pts Care (In Minutes): 67
[2024-11-25] MEDS: HYDRALAZINE HCL 20 MG/ML VIAL IV PRN (21:29)
[2024-11-25] MEDS: HEPARIN 5000 UNIT/ML 1 ML VIAL SQ SCH (21:30)
[2024-11-26 04:38] LABS: Absolute Basophils 0.1 K/uL (0-0.5); Absolute Eosinophils 0.1 K/uL (0-0.5); Absolute Lymphocytes (CBC) 1.3 K/uL (0.7-4.9); Absolute Monocytes 1.1 K/uL (0.1-1.3); Absolute Neutrophil 6.5 K/uL (1.8-8.0); Basophils % 0.6 % (0-1.3); Eosinophils % 0.8 % (0-4.4); Hematocrit 34.4 % (36.0-45.0); Hemoglobin 12.1 g/dL (12.0-15.0); Lymphocytes % 14.9 % (15.3-44.8); MCH 31.9 pg (27.0-35.0); MCHC 35.3 g/dL (32.0-36.0); MCV 90.5 fL (80-100); MPV 8.1 fL (7.6-11.3); Monocytes % 11.8 % (3.3-12.3); Neutrophils % 71.9 % (41.7-73.7); Nucleated Red Blood Cells % 0.1 % (0-0); Platelets 189 thou/uL (152-406); RBC Red Blood Cell Count 3.81 M/uL (3.86-4.86); Red Cell Distribution Width 14.1 % (12.1-15.2)
[2024-11-26 05:05] LABS: Thyroid Stimulating Hormone 0.809 uIU/mL (0.358-3.740)
[2024-11-26] MEDS: CEFTRIAXONE 1,000 MG in NA CHLORIDE 0.9% 50 ML IVPB SCH (08:56)
[2024-11-26] MEDS: AZITHROMYCIN IV 500 MG in NA CHLORIDE 0.9% 250 ML IVPB SCH (08:56)
[2024-11-26] MEDS: KCL 20 MEQ/100 mL IVPB 20 MEQ/100 ML BAG IV SCH (08:57)
[2024-11-26] MEDS: ASPIRIN 300 MG/SUPP PR SCH (08:57)
[2024-11-26] MEDS: CLONIDINE 0.2 MG/PATCH TD SCH (09:06)
--- NOTE | 2024-11-26 09:23 | P.PN ---
Date of Service: 11/26/24 Subjective: No acute events overnight No changes in mentation ROS: 10 point ROS as noted above, otherwise negative Physical exam GEN: Aphasic, Flaccid on right HEENT: Normal conjunctiva, sclera anicteric CV: Regular rate and rhythm, no edema Pulm: Nonlabored respirations on room air ABD: Soft, nontender, nondistended MSK: No joint tenderness Integumentary: No rashes Neuro: Right-sided weakness, aphasia, facial droop Vitals reviewed Assessment: Subacute CVA with worsening symptoms Suspected pneumonia Metabolic encephalopathy versus worsening CVA symptoms Hypertension Plan: Subacute CVA with worsening symptoms Suspected pneumonia Metabolic encephalopathy versus worsening CVA symptoms Patient with aphasia, worse right-sided deficits N.p.o. for now, speech evaluation Patient/family would not want feeding tube or other aggressive measures Will continue IV fluids and antibiotics for the next 48 to 72 hours and monitor for improvement PT, OT, speech therapy consultations placed CT shows subacute CVA, was initially transferred to weeks ago for possible vascular dimension, not a candidate per team at [facility] Continue antibiotics, follow blood cultures Hypertension Need to hold oral medications at this time, as needed IV antihypertensive agents DVT PPX: Lovenox Code status: Full Discharge Plan: Home Plan to discharge in: Greater than 2 days Time Spent Managing Pts Care (In Minutes): 35
--- NOTE | 2024-11-26 11:48 | EKG ---
Test Date: 2024-11-25 Test Time: 09:15:56 Mine Wirer: JODIE MEASUREMENT RESULTS: Intervals: Rate: 91 CA: 156 QRSD: 82 QT: 372 QTc: 457 [place]: P: 63 CA: 156 QRS: 44 T: 114 INTERPRETIVE STATEMENTS: Sinus rhythm with occasional premature ventricular complexes and premature atrial complexes ST & T wave abnormality, consider lateral ischemia Abnormal ECG Compared to ECG 11/14/2024 22:17:32 Atrial premature complex(es) now present Prolonged QT interval no longer present ST (T wave) deviation still present Possible ischemia still present Electronically Signed On 11-26-24 11:46:34 CDT by Alexis Lanier
[2024-11-26] MEDS: D5.45NS W/KCL 20MEQ 20 MEQ/1,000 ML BAG IV SCH (18:31)
[2024-11-27] MEDS ORDERED: ACETAMINOPHEN 650MG/RECT SUPP PR PRN (08:11)
[2024-11-27 08:32] LABS: Absolute Basophils 0.1 K/uL (0-0.5); Absolute Eosinophils 0.2 K/uL (0-0.5); Absolute Lymphocytes (CBC) 1.3 K/uL (0.7-4.9); Absolute Monocytes 0.9 K/uL (0.1-1.3); Absolute Neutrophil 4.9 K/uL (1.8-8.0); Eosinophils % 2.4 % (0-4.4); Hematocrit 32.1 % (36.0-45.0); Lymphocytes % 18.2 % (15.3-44.8); MCH 31.2 pg (27.0-35.0); MCHC 34.3 g/dL (32.0-36.0); MCV 90.8 fL (80-100); MPV 7.9 fL (7.6-11.3); Monocytes % 12.4 % (3.3-12.3); Nucleated Red Blood Cells % 0.2 % (0-0); Platelets 204 thou/uL (152-406); RBC Red Blood Cell Count 3.53 M/uL (3.86-4.86); Red Cell Distribution Width 14.3 % (12.1-15.2)
[2024-11-27 08:59] LABS: Albumin 2.5 g/dL (3.4-5.0); Albumin/Globulin Ratio 0.8 (1.1-1.8); Anion Gap 8.4 mEq/L (5.0-15.0); Bilirubin Direct 0.3 mg/dL (0-0.2); Bilirubin Indirect, Calculated 0.5 mg/dL (0.2-0.8); Bilirubin Total 0.8 mg/dL (0.2-1.0); Potassium 3.4 mEq/L (3.5-5.1); Protein, Total 5.5 g/dL (6.4-8.2)
[2024-11-27] MEDS: D5.45NS W/KCL 20MEQ 20 MEQ/1,000 ML BAG IV SCH (10:00)
--- NOTE | 2024-11-27 12:37 | P.PN ---
Date of Service: 11/27/24 Subjective: No acute events overnight No changes in mentation/function Decreased urine output ROS: 10 point ROS as noted above, otherwise negative Physical exam GEN: Aphasic, Flaccid on right HEENT: Normal conjunctiva, sclera anicteric CV: Regular rate and rhythm, no edema Pulm: Nonlabored respirations on room air ABD: Soft, nontender, nondistended MSK: No joint tenderness Integumentary: No rashes Neuro: Right-sided weakness, aphasia, facial droop Vitals reviewed Assessment: Subacute CVA with worsening symptoms Suspected pneumonia Metabolic encephalopathy versus worsening CVA symptoms Hypertension Plan: Subacute CVA with worsening symptoms Suspected pneumonia Metabolic encephalopathy versus worsening CVA symptoms Patient with aphasia, worse right-sided deficits N.p.o. for now, seen by speech who recommends n.p.o. diet at high risk of aspiration Patient/family would not want feeding tube or other aggressive measures Will continue IV fluids and antibiotics PT, OT, speech therapy consultations placed CT shows subacute CVA, was initially transferred to weeks ago for possible vascular dimension, not a candidate per team at [facility] Continue antibiotics, follow blood cultures-no growth in 24 hours Will need to discuss plan of care with patient and family as patient has not progressed and remains n.p.o. Hypertension Need to hold oral medications at this time, as needed IV antihypertensive agents DVT PPX: Lovenox Code status: Full Discharge Plan: Home Plan to discharge in: Greater than 2 days Time Spent Managing Pts Care (In Minutes): 35
[2024-11-28 07:38] LABS: Absolute Basophils 0.1 K/uL (0-0.5); Absolute Eosinophils 0.4 K/uL (0-0.5); Absolute Lymphocytes (CBC) 1.4 K/uL (0.7-4.9); Absolute Monocytes 0.9 K/uL (0.1-1.3); Absolute Neutrophil 4.4 K/uL (1.8-8.0); Basophils % 0.8 % (0-1.3); Eosinophils % 5.4 % (0-4.4); Hematocrit 31.7 % (36.0-45.0); Hemoglobin 11.3 g/dL (12.0-15.0); Lymphocytes % 19.9 % (15.3-44.8); MCH 32.2 pg (27.0-35.0); MCHC 35.5 g/dL (32.0-36.0); MCV 90.7 fL (80-100); MPV 7.7 fL (7.6-11.3); Monocytes % 12.5 % (3.3-12.3); Neutrophils % 61.4 % (41.7-73.7); Platelets 196 thou/uL (152-406); Red Cell Distribution Width 14.1 % (12.1-15.2)
[2024-11-28 08:08] LABS: Anion Gap 6.5 mEq/L (5.0-15.0); Magnesium 1.4 mg/dL (1.6-2.4); Potassium 3.5 mEq/L (3.5-5.1)
--- NOTE | 2024-11-28 09:15 | P.PN ---
Date of Service: 11/28/24 Subjective: No acute events overnight No changes in mentation/function Decreased urine output ROS: 10 point ROS as noted above, otherwise negative Physical exam GEN: Aphasic, Flaccid on right HEENT: Normal conjunctiva, sclera anicteric CV: Regular rate and rhythm, no edema Pulm: Nonlabored respirations on room air ABD: Soft, nontender, nondistended MSK: No joint tenderness Integumentary: No rashes Neuro: Right-sided weakness, aphasia, facial droop Vitals reviewed Assessment: Subacute CVA with worsening symptoms Suspected pneumonia Metabolic encephalopathy versus worsening CVA symptoms Hypertension Plan: Subacute CVA with worsening symptoms Suspected pneumonia Metabolic encephalopathy versus worsening CVA symptoms Patient with aphasia, worse right-sided deficits N.p.o. for now, seen by speech who recommends n.p.o. diet at high risk of aspiration Patient/family would not want feeding tube or other aggressive measures Speech to reevaluate today to make determination on n.p.o. status versus a possible diet Family considering palliative care Will continue IV fluids and antibiotics PT, OT, speech therapy consultations placed CT shows subacute CVA, was initially transferred to weeks ago for possible vascular dimension, not a candidate per team at [facility] Continue antibiotics, follow blood cultures-no growth in 24 hours Will need to discuss plan of care with patient and family as patient has not progressed and remains n.p.o. Hypertension Need to hold oral medications at this time, as needed IV antihypertensive agents DVT PPX: Lovenox Code status: Full Discharge Plan: Home Plan to discharge in: Greater than 2 days Time Spent Managing Pts Care (In Minutes): 35
[2024-11-28] MEDS: Magnesium Sulfate 2gm IVPB 2 G/50 ML BAG IV ONE (11:54)
[2024-11-28] MEDS: KCL 20 MEQ/100 mL IVPB 20 MEQ/100 ML BAG IV SCH (11:54)
[2024-11-29 07:40] LABS: Absolute Basophils 0.1 K/uL (0-0.5); Absolute Eosinophils 0.4 K/uL (0-0.5); Absolute Lymphocytes (CBC) 1.5 K/uL (0.7-4.9); Absolute Monocytes 0.8 K/uL (0.1-1.3); Absolute Neutrophil 5.1 K/uL (1.8-8.0); Basophils % 1.3 % (0-1.3); Eosinophils % 5.4 % (0-4.4); Hematocrit 30.6 % (36.0-45.0); Hemoglobin 10.6 g/dL (12.0-15.0); Lymphocytes % 18.9 % (15.3-44.8); MCH 31.1 pg (27.0-35.0); MCHC 34.5 g/dL (32.0-36.0); MCV 90.3 fL (80-100); MPV 7.9 fL (7.6-11.3); Monocytes % 10.6 % (3.3-12.3); Neutrophils % 63.8 % (41.7-73.7); Nucleated RBC Absolute Count 0.1 (0-0); Nucleated Red Blood Cells % 0.6 % (0-0); Platelets 215 thou/uL (152-406); RBC Red Blood Cell Count 3.39 M/uL (3.86-4.86); Red Cell Distribution Width 13.8 % (12.1-15.2)
[2024-11-29 07:50] LABS: Anion Gap 11.3 mEq/L (5.0-15.0); Bicarbonate 19 mEq/L (21-32); Glomerular Filtration Rate 89 ml/min (=/>90); Glucose Level 168 mg/dL (74-106); Potassium 4.3 mEq/L (3.5-5.1); Sodium Level 132 mEq/L (136-145)
[2024-11-29 07:53] LABS: BUN Blood Urea Nitrogen < 3 mg/dL (7-18)
--- NOTE | 2024-11-29 10:24 | P.PN ---
Date of Service: 11/29/24 Subjective: No acute events overnight No changes in mentation/function Decreased urine output Some improvement in swallowing with speech therapy ROS: 10 point ROS as noted above, otherwise negative Physical exam GEN: Aphasic, Flaccid on right HEENT: Normal conjunctiva, sclera anicteric CV: Regular rate and rhythm, no edema Pulm: Nonlabored respirations on room air ABD: Soft, nontender, nondistended MSK: No joint tenderness Integumentary: No rashes Neuro: Right-sided weakness, aphasia, facial droop Vitals reviewed Assessment: Subacute CVA with worsening symptoms Suspected pneumonia Metabolic encephalopathy versus worsening CVA symptoms Hypertension Plan: Subacute CVA with worsening symptoms Suspected pneumonia Metabolic encephalopathy versus worsening CVA symptoms Patient with aphasia, worse right-sided deficits Seen by speech, okay for comfort feedings with pured diet Speech to reevaluate today Patient/family would not want feeding tube or other aggressive measures Family considering palliative care-hospice consult placed Will continue IV fluids and antibiotics PT, OT, speech therapy consultations placed CT shows subacute CVA, was initially transferred to weeks ago for possible vascular dimension, not a candidate per team at [facility] Continue antibiotics, follow blood cultures-no growth in 24 hours Will need to discuss plan of care with patient and family as patient has not progressed and remains n.p.o. Hypertension Need to hold oral medications at this time, as needed IV antihypertensive agents DVT PPX: Lovenox Code status: Full Discharge Plan: Home Plan to discharge in: Greater than 2 days Time Spent Managing Pts Care (In Minutes): 35
[2024-11-29] MEDS: D5.45NS W/KCL 20MEQ 20 MEQ/1,000 ML BAG IV SCH (10:25)
[2024-11-30 00:24] VITALS: O2SAT 95
[2024-11-30 05:30] LABS: Anion Gap 10.3 mEq/L (5.0-15.0); Bicarbonate 20 mEq/L (21-32); Glomerular Filtration Rate 90 ml/min (=/>90); Glucose Level 130 mg/dL (74-106); Potassium 4.3 mEq/L (3.5-5.1); Sodium Level 131 mEq/L (136-145)
[2024-11-30 05:35] VITALS: BMI 25.4
[2024-11-30 05:35] LABS: BUN Blood Urea Nitrogen < 3 mg/dL (7-18)
[2024-11-30] MEDS: MAGNESIUM SULFATE 1 gm IVPB 1 GM/100 ML BAG IV ONE (06:50)
[2024-11-30 08:18] LABS: Hematocrit 32.7 % (36.0-45.0); Hemoglobin 11.5 g/dL (12.0-15.0); MCH 31.7 pg (27.0-35.0); MCHC 35.1 g/dL (32.0-36.0); MCV 90.4 fL (80-100); MPV 7.3 fL (7.6-11.3); Platelets 249 thou/uL (152-406); RBC Red Blood Cell Count 3.62 M/uL (3.86-4.86); Red Cell Distribution Width 14.1 % (12.1-15.2)
--- NOTE | 2024-11-30 09:49 | P.PN ---
Date of Service: 11/30/24 Subjective: No acute events overnight No changes in mentation/function Some improvement in swallowing with speech therapy Family at bedside ROS: 10 point ROS as noted above, otherwise negative Physical exam GEN: Aphasic, Flaccid on right HEENT: Normal conjunctiva, sclera anicteric CV: Regular rate and rhythm, no edema Pulm: Nonlabored respirations on room air ABD: Soft, nontender, nondistended MSK: No joint tenderness Integumentary: No rashes Neuro: Right-sided weakness, aphasia, facial droop Vitals reviewed Assessment: Subacute CVA with worsening symptoms Suspected pneumonia Metabolic encephalopathy versus worsening CVA symptoms Hypertension Plan: Subacute CVA with worsening symptoms Suspected pneumonia Metabolic encephalopathy versus worsening CVA symptoms Patient with aphasia, worse right-sided deficits Seen by speech, okay for comfort feedings with pured diet Speech to reevaluate today Patient/family would not want feeding tube or other aggressive measures Family considering palliative care-hospice consult placed Will continue IV fluids and antibiotics PT, OT, speech therapy consultations placed CT shows subacute CVA, was initially transferred to weeks ago for possible vascular dimension, not a candidate per team at [facility] Continue antibiotics, follow blood cultures-no growth in 24 hours Plan of care discussed with family Daily reviewing different hospice companies/options looking for a hospice company with physical and speech therapy offerings Discharge once this can be arranged and equipment can be delivered Hypertension Need to hold oral medications at this time, as needed IV antihypertensive agents DVT PPX: Lovenox Code status: Full Discharge Plan: Home Plan to discharge in: Greater than 2 days Time Spent Managing Pts Care (In Minutes): 35
--- NOTE | 2024-12-01 09:49 | P.PN ---
Date of Service: 12/01/24 Subjective: No acute events overnight No changes in mentation/function Some improvement in swallowing with speech therapy Family at bedside ROS: 10 point ROS as noted above, otherwise negative Physical exam GEN: Aphasic, Flaccid on right HEENT: Normal conjunctiva, sclera anicteric CV: Regular rate and rhythm, no edema Pulm: Nonlabored respirations on room air ABD: Soft, nontender, nondistended MSK: No joint tenderness Integumentary: No rashes Neuro: Right-sided weakness, aphasia, facial droop Vitals reviewed Assessment: Subacute CVA with worsening symptoms Suspected pneumonia Metabolic encephalopathy versus worsening CVA symptoms Hypertension Plan: Subacute CVA with worsening symptoms Suspected pneumonia Metabolic encephalopathy versus worsening CVA symptoms Patient with aphasia, worse right-sided deficits Seen by speech, okay for comfort feedings with pured diet Speech to reevaluate today Patient/family would not want feeding tube or other aggressive measures Family considering palliative care-hospice consult placed Completed antibiotics, continue gentle IV fluids PT, OT, speech therapy consultations placed CT shows subacute CVA, was initially transferred to weeks ago for possible vascular dimension, not a candidate per team at [facility] Continue antibiotics, follow blood cultures-no growth in 24 hours Plan of care discussed with family Daily reviewing different hospice companies/options looking for a hospice company with physical and speech therapy offerings Discharge once this can be arranged and equipment can be delivered Likely discharge Monday with home hospice if everything can be arranged Hypertension Need to hold oral medications at this time, as needed IV antihypertensive agents DVT PPX: Lovenox Code status: Full Discharge Plan: Home Plan to discharge in: Greater than 2 days Time Spent Managing Pts Care (In Minutes): 35
--- NOTE | 2024-12-02 11:53 | P.DS ---
Admission Date: 11/25/24 Discharge Date: 12/02/24 Disposition: HOSPICE-HOME Discharge Condition: SERIOUS Reason for Admission: Pneumonia, CVA Brief History of Present Illness: 84-year-old female with recent history of ischemic CVA, hypertension, hyperlipidemia presents to the emergency department chief complaint of decreased mentation, aphasia, increasing right sided deficits. She was admitted at [facility] around 2 weeks ago, there was some concern that she may be a candidate for vascular intervention from her last stroke but she was not. She was doing well when she was discharged from the hospital on Thursday 11/16, in the last few days it was noted by family that she had been getting worse, not able to speak with worsening right sided weakness. Patient was brought to the emergency department for evaluation she said of low- grade temp and possible pneumonia on the chest x-ray, CBC was unremarkable potassium was 3.1. CT of the head was performed which showed 3.5 cm length area of diminished density left periventricular centrum semiovale white matter new since the prior CT head presumably a subacute CVA. Discussed plan of care with family, will admit, rehydrate and treat with antibiotics to see if there is some component of metabolic encephalopathy versus worsening CVA. Patient is a DNR, would not want any feeding tubes etc. Hospital Course: Assessment: Subacute CVA with worsening symptoms Suspected pneumonia Metabolic encephalopathy versus worsening CVA symptoms Hypertension 84-year-old female with recent hospitalization for acute CVA at [facility] presented to our emergency department with findings of worsening right- sided deficits, aphasia. She had a suspected aspiration pneumonia as well. Patient was treated with IV fluids, antibiotics and evaluated by speech and physical therapy during her hospitalization. She has and advanced directive that states that she would not wish for any kind of artificial feeding/tube feeds and family wish to honor this. She has been aphasic throughout the hospitalization, she was seen by speech who initially recommended n.p.o. but she did progress slightly and was cleared for comfort feedings with pured diet. Family have elected to pursue palliative measures and hospice told her the patient's wishes at end-of-life care. Home hospice has been arranged, equipment to be delivered to the home and patient may be discharged to their care. She will have ongoing PT and speech therapy evaluations outpatient with hospice. Vital Signs/Physical Exam: Temp Pulse Resp BP Pulse Ox 97.6 F 77 16 141/67 H 98 12/02/24 08:00 12/02/24 08:00 12/02/24 08:00 12/02/24 08:00 12/02/24 08:00 General: Alert, Confused HEENT: Atraumatic Neck: Supple Respiratory: Clear to auscultation bilaterally Cardiovascular: No edema Capillary refill: <2 Seconds Gastrointestinal: Non-distended Musculoskeletal: No contractures Integumentary: No cyanosis Neurological: Other (Aphasia, right side flaccid) Laboratory Data at Discharge: WBC 6.80 thou/uL (4.3-10.9) 11/30/24 08:04 Hgb 11.5 g/dL (12.0-15.0) L D 11/30/24 08:04 Hct 32.7 % (36.0-45.0) L 11/30/24 08:04 Plt Count 249 thou/uL (152-406) 11/30/24 08:04 PT 13.3 SECONDS (10-13.0) H 11/25/24 09:42 INR 1.18 11/25/24 09:42 APTT 29.5 SECONDS (27.2-37.4) 11/25/24 09:42 Sodium 131 mEq/L (136-145) L 11/30/24 05:04 Potassium 4.3 mEq/L (3.5-5.1) 11/30/24 05:04 BUN < 3 mg/dL (7-18) L 11/30/24 05:04 Creatinine 0.55 mg/dL (0.55-1.02) 11/30/24 05:04 Glucose 130 mg/dL (74-106) H 11/30/24 05:04 Magnesium 1.9 mg/dL (1.6-2.4) 12/01/24 05:08 Total Bilirubin Cancelled 11/27/24 Unknown AST Cancelled 11/27/24 Unknown ALT Cancelled 11/27/24 Unknown Alkaline Phosphatase Cancelled 11/27/24 Unknown Triglycerides 96 mg/dL (<150) 11/26/24 04:16 Cholesterol 152 mg/dL (<200) 11/26/24 04:16 HDL Cholesterol 45 mg/dL (40-60) 11/26/24 04:16 Cholesterol/HDL Ratio 3.38 11/26/24 04:16 Home Medications: Bupropion *Xl* [Wellbutrin XL*] 150 mg PO Q48H 04/30/24 Pantoprazole Sodium [Protonix] 40 mg PO DAILY 04/30/24 Trazodone [Desyrel*] 150 mg PO BEDTIME 04/30/24 Levothyroxine [Synthroid*] 75 mcg PO [id number] 05/01/24 carvediloL [Coreg] 12.5 mg PO BID 05/01/24 Aspirin [Aspirin EC] 81 mg PO DAILY 11/25/24 Clopidogrel Bisulfate [Plavix] 75 mg PO DAILY 11/25/24 Atorvastatin Calcium [Lipitor] 80 mg PO BEDTIME 11/27/24 Physician Discharge Instructions: 84-year-old female with recent hospitalization for acute CVA at [facility] presented to our emergency department with findings of worsening right- sided deficits, aphasia. She had a suspected aspiration pneumonia as well. Patient was treated with IV fluids, antibiotics and evaluated by speech and physical therapy during her hospitalization. She has and advanced directive that states that she would not wish for any kind of artificial feeding/tube feeds and family wish to honor this. She has been aphasic throughout the hospitalization, she was seen by speech who initially recommended n.p.o. but she did progress slightly and was cleared for comfort feedings with pured diet. Family have elected to pursue palliative measures and hospice told her the patient's wishes at end-of-life care. Home hospice has been arranged, equipment to be delivered to the home and patient may be discharged to their care. She will have ongoing PT and speech therapy evaluations outpatient with hospice. Diet: Pure Activity: Bedrest Followup: NONE,NONE [Primary Care Provider] - Time spent managing pt's care (in minutes): 43
[2024-12-02 12:13] VITALS: TEMP 98.1
[2024-12-02 16:47] VITALS: BP 176/81
== END 2024-12-02 16:30 | disposition hospice, home (50) | DRG 64 ==
LOC: ER 09:07 → ERHOLD 11:45 → 2ND 16:32 → 4TH 11-26 16:06 → 2ND 11-26 16:06
PROVIDERS: ADMIT Hospitalist; ATTEND Internal Medicine
PROC: 0T9B70Z Drainage of Bladder with Drainage Device, Via Natural or Artificial Opening (ICD-10-PCS; principal; 2024-11-29)
DX: I63.9 Cerebral infarction, unspecified (principal); J69.0 Pneumonitis due to inhalation of food and vomit; I69.351 Hemiplegia and hemiparesis following cerebral infarction affecting right dominant side; I69.320 Aphasia following cerebral infarction; I10 Essential (primary) hypertension; E78.5 Hyperlipidemia, unspecified; R29.810 Facial weakness; Z66 Do not resuscitate; Z51.5 Encounter for palliative care; Z88.5 Allergy status to narcotic agent; Z88.1 Allergy status to other antibiotic agents; Z88.8 Allergy status to other drugs, medicaments and biological substances; Z79.82 Long term (current) use of aspirin; Z11.52 Encounter for screening for COVID-19; Z79.02 Long term (current) use of antithrombotics/antiplatelets; Z79.890 Hormone replacement therapy; Z79.899 Other long term (current) drug therapy
CPT/HCPCS: 36415; 51702; 70450; 71045; 80048; 80053; 80061; 80076; 81001; 83605; 83735; 84132; 84439; 84443; 85025; 85027; 85610; 85730; 87040; 87428; 92526; 92610; 93005; 96365; 97140; 97161; 97165; 97530; 99285; J0360; J0696; J1644; J3475; J3480; J7030; J7050